=== PATIENT | female | born 1965 | race African-American/Black ===

== ENCOUNTER 2016-12-26 22:01 | Emergency (ER) | payer OTHER ==
[~2016-12-26] VITALS: Ht 157.5 cm; Wt 82.1 kg
[~2016-12-26 22:01] MED LIST: ALBUTEROL SULF8.5 GM INH; ALBUTEROL2.5 MG/3 M HHN; AMOXICILLIN500 MG ORAL; ATARAX25 MG ORAL; AUGMENTIN 875-1 EAC1 ORAL; AURALGAN OTIC1 DROP BOTH EARS; AZITHROMYCIN250 MG ORAL; AZITHROMYCIN250 MG PO; BACTRIM-DS1 EA PO; BENADRYL25 MG ORAL; BENAZEPRIL HCL10 MG PO; CLARITIN10 M2 PO; CLARITIN10 MG ORAL; COLCHICINE0.6 M1 PO; DOCUSATE SODIU250 MG PO; FLOVENT2 PUFF1 INH; FUROSEMIDE20 M1 PO; GABAPENTIN600 MG ORAL; INDOMETHACIN75 MG ORAL; IRON159 MG PO; IRON325 M1 PO; KEFLEX500 MG PO; MULTI-VITAMIN1 EACH PO; NORCO 5-325 TA1 EACH ORAL; OYST CAL D 5001 EACH PO; PHENERGAN/CODE120 ML PO; PREDNISONE20 MG ORAL; PREDNISONE20 MG PO; PREVACID15 MG PO; PRILOSEC40 MG ORAL; PROMETHAZINE-C118 M1 ORAL; SINGULAIR10 MG PO; TRAMADOL HCL50 MG ORAL; TRAMADOL HCL50 MG PO; TYLENOL EXTRA500 MG ORAL; VISTARIL50 MG ORAL; XOPENEX HFA15 GM IH; ZYRTEC10 MG ORAL
[2016-12-26] MEDS ORDERED: ACETAMINOPHEN-1 EAC1 ORAL (22:53)
--- NOTE | 2016-12-26 22:54 | Emergency Room Report ---
History of Present Illness General Chief Complaint: Pain Source: Patient, Family Member, Medical Record Present Illness HPI Is a 51-year-old female with a history of gout. She also history carpal tunnel syndrome. She presents with chief complaint of left arm pain is been ongoing for 2 weeks. She felt numbness in her hand. Also pain to the elbow and neck area. Denies any fever chills denies any trauma. Pain is 10 out of 10. Ibuprofen and gabapentin not helping. Denies any other complaint. Allergies: Coded Allergies: LEVOFLOXACIN (Verified Allergy, Mild, RASH, 08/09/09) HYDROCHLOROTHIAZIDE (Verified Allergy, Unknown, HIVES AND GI UPSET, ) LORAZEPAM (Verified Allergy, Unknown, CONFUSION ACCORDING TO DAUGHTER, 18/10) ACETAMINOPHEN (Verified Adverse Reaction, Unknown, GI UPSET, 03/16/11) HYDROCODONE (Verified Adverse Reaction, Unknown, GI UPSET, 03/16/11) RANITIDINE (Verified Adverse Reaction, Unknown, GI UPSET, 03/16/11) Uncoded Allergies: ati (Adverse Reaction, Intermediate, 10/12/14) Patient History Past Medical History: see triage record, old chart reviewed, HTN Past Surgical History: other Pertinent Family History: none Social History: Denies: smoking Now: No Immunizations: other Reviewed Nursing Documentation: PMH: Agreed, PSxH: Agreed Nursing Documentation-PMH Hx Cardiac Problems: Yes - CARPAL TUNNEL Hx Hypertension: Yes Hx Pacemaker: No Hx Asthma: Yes Hx COPD: No Hx Diabetes: No Hx Cancer: No Hx Gastrointestinal Problems: Yes Hx Dialysis: No Hx Neurological Problems: No Hx Cerebrovascular Accident: No Hx Seizures: No Review of Systems Eye: Denies: blurred vision, eye pain ENT: Denies: ear pain, nose congestion, throat swelling Respiratory: Denies: cough, shortness of breath Cardiovascular: Denies: chest pain, palpitations Gastrointestinal: Denies: abdominal pain, diarrhea, nausea, vomiting Musculoskeletal: Reports: joint pain, Denies: back pain Skin: Denies: rash Neurological: Denies: headache, numbness Endocrine: Denies: increased thirst, increased urine Hematologic/Lymphatic: Denies: easy bruising All Other Systems: negative except mentioned in HPI Physical Exam Vital Signs Date Time Temp Pulse Resp B/P Pulse Ox O2 Delivery O2 Flow Rate FiO2 12/26/16 22:32 97.7 85 16 134/68 100 Room Air vitals normal Sp02 EP Interpretation: reviewed, normal General Appearance: well appearing, no apparent distress, alert Head: normocephalic, atraumatic Eyes: bilateral eye EOMI, bilateral eye PERRL ENT: hearing grossly normal, normal pharynx Neck: full range of motion, supple, no meningismus Respiratory: chest non-tender, lungs clear, normal breath sounds Cardiovascular #1: regular rate, rhythm, no murmur Gastrointestinal: normal bowel sounds, non tender, no mass, no organomegaly, no bruit, non-distended Musculoskeletal: back normal, gait/station normal, normal range of motion Psychiatric: mood/affect normal Skin: warm/dry Medical Decision Making Diagnostic Impression: Primary Impression: Arthralgia Qualified Codes: M25.50 - Pain in unspecified joint ER Course Is presents with left arm pain. I suspect that she has arthritis versus stenosis and his nerve in the neck. No evidence of cauda equina syndrome, spinal after abscess, septic joint to name a few. We'll discharge home. Last Vital Signs Date Time Temp Pulse Resp B/P Pulse Ox O2 Delivery O2 Flow Rate FiO2 12/26/16 22:32 97.7 85 16 134/68 100 Room Air Status: improved Disposition: HOME, SELF-CARE Condition: Stable Scripts Acetaminophen With Codeine (T#3) (TYLENOL #3 TAB*) Y Tab 1 TAB ORAL Q8H Y for For Pain, #30 TAB Prov: BROOKLYN AKHTAR M.D. 12/26/16 Additional Instructions: Followup with your Dr. in 7 days. You may need an MRI of your neck and not better. Return if symptom worsen. BROOKLYN AKHTAR M.D. Dec 26, 2016 22:54
[2016-12-26] MEDS ORDERED: Morphine Sulfate 4mg/ml Inj IM ONE (23:00)
[2016-12-26 23:07] VITALS: BP 134/68
== END 2016-12-26 23:08 | disposition home or self-care (01) ==
LOC: EMR 22:52
DX: M79.602 Pain in left arm (principal); I10 Essential (primary) hypertension; J45.909 Unspecified asthma, uncomplicated; Z88.1 Allergy status to other antibiotic agents; Z88.6 Allergy status to analgesic agent; Z88.8 Allergy status to other drugs, medicaments and biological substances
CPT/HCPCS: 96372; 99283; J2270; 96360; 96374; 96375

== ENCOUNTER 2017-10-31 11:22 | Inpatient (IN) | payer OTHER ==
[~2017-10-31] VITALS: Ht 157.5 cm; Wt 88.9 kg
[~2017-10-31 11:22] MED LIST changes: +ACETAMINOPHEN-1 EAC1 ORAL
[2017-10-31] MEDS ORDERED: Solu-MEDROL 125mg Inj IVP ONE (11:30)
[2017-10-31 11:53] VITALS: BP 129/63
[2017-10-31] MEDS: Ipratropium 0.02% Inh Soln 2.5ml UD HHN SCH ×3 (12:14→12:28)
[2017-10-31] MEDS: Albuterol ud Inhalation HHN SCH ×3 (12:28→12:40)
[2017-10-31 12:35] LABS: BASOPHILS % (AUTO) 2.9 % (0.0-2.0); EOSINOPHILS % (AUTO) 0.2 % (0.0-3.0); LYMPHOCYTES % (AUTO) 13.3 % (20.0-45.0); MEAN CORPUSCULAR HEMOGLOBIN 28.1 PG (27.0-31.0); MEAN CORPUSCULAR HGB CONC 31.7 G/DL (32.0-36.0); MEAN CORPUSCULAR VOLUME 89 FL (80-99); MEAN PLATELET VOLUME 8.5 FL (6.5-10.1); MONOCYTES % (AUTO) 15.4 % (1.0-10.0); NEUTROPHILS % (AUTO) 68.2 % (45.0-75.0); PLATELET COUNT 337 K/UL (150-450); RED BLOOD COUNT 4.37 M/UL (4.20-5.40); RED CELL DISTRIBUTION WIDTH 12.7 % (11.6-14.8); WHITE BLOOD COUNT 4.8 K/UL (4.8-10.8)
[2017-10-31] MEDS ORDERED: Acetaminophen 500mg (ES) tab ORAL ONE ×2 (12:36→14:15)
[2017-10-31 12:38] LABS: ANION GAP 6 mmol/L (5-15); CALCIUM 7.3 MG/DL (8.5-10.1); CARBON DIOXIDE 30 MMOL/L (21-32); CHLORIDE 104 MMOL/L (98-107); CREATININE 0.9 MG/DL (0.55-1.30); GLOMERULAR FILTRATION RATE > 60 mL/min (>60); POTASSIUM 3.9 MMOL/L (3.5-5.1); SODIUM 140 MMOL/L (136-145)
[2017-10-31 12:49] LABS: ALANINE AMINOTRANSFERASE 30 U/L (12-78); ALBUMIN/GLOBULIN RATIO 0.9 (1.0-2.7); ASPARTATE AMINO TRANSFERASE 21 U/L (15-37); TOTAL PROTEIN 7.3 G/DL (6.4-8.2)
--- NOTE | 2017-10-31 13:24 | Emergency Room Report ---
History of Present Illness General Chief Complaint: Dyspnea/Respdistress Source: Patient Present Illness HPI 52-year-old female with asthma, p/w SOB for 3 days. Patient states SOB began when gradually. SOB occurs both at rest and on exertion. + productive cough with sputum, Denies chest pain. Patient has been using albuterol inhaler every 12 hours. no recent steroid use. Pt states that this episode is similar to other episodes of asthma exacerbation. + fever, chills. Denies sick contacts or recent travel. States that she has had intubations in the past, the last was 10 years ago Denies history of PE/DVT, no recent surgeries, prolonged immobilization Allergies: Coded Allergies: LEVOFLOXACIN (Verified Allergy, Mild, RASH, 08/09/09) HYDROCHLOROTHIAZIDE (Verified Allergy, Unknown, HIVES AND GI UPSET, ) LORAZEPAM (Verified Allergy, Unknown, CONFUSION ACCORDING TO DAUGHTER, 18/10) HYDROCODONE (Verified Adverse Reaction, Unknown, GI UPSET, 03/16/11) RANITIDINE (Verified Adverse Reaction, Unknown, GI UPSET, 03/16/11) Uncoded Allergies: ati (Adverse Reaction, Intermediate, 10/12/14) Patient History Past Medical History: see triage record Past Surgical History: none Pertinent Family History: none Last Menstrual Period: Perimenopausal Reviewed Nursing Documentation: PMH: Agreed, PSxH: Agreed Nursing Documentation-PMH Hx Cardiac Problems: Yes - CARPAL TUNNEL Hx Hypertension: Yes Hx Pacemaker: No Hx Asthma: Yes Hx COPD: No Hx Diabetes: No Hx Cancer: No Hx Gastrointestinal Problems: Yes Hx Dialysis: No Hx Neurological Problems: No Hx Cerebrovascular Accident: No Hx Seizures: No Review of Systems All Other Systems: negative except mentioned in HPI Physical Exam Vital Signs Date Time Temp Pulse Resp B/P (MAP) Pulse Ox O2 Delivery O2 Flow Rate FiO2 10/31/17 11:24 101.1 100 28 121/62 100 Room Air 10/31/17 12:20 2.0 28 Sp02 EP Interpretation: reviewed, normal General Appearance: alert, GCS 15, non-toxic, moderate distress Head: normocephalic, atraumatic Eyes: bilateral eye normal inspection, bilateral eye PERRL, bilateral eye EOMI ENT: normal ENT inspection, normal pharynx, normal voice, moist mucus membranes Neck: normal inspection, full range of motion, supple Respiratory: other - wheezing b/l Cardiovascular #1: normal inspection, regular rate, rhythm, normal capillary refill Cardiovascular #2: 2+ radial (R), 2+ radial (L) Gastrointestinal: normal inspection, non tender, soft, non-distended, no guarding Musculoskeletal: normal inspection, back normal, normal range of motion, non- tender Neurologic: normal inspection, alert, oriented x3, responsive, motor strength/ tone normal, sensory intact, normal gait, speech normal Psychiatric: normal inspection, judgement/insight normal, memory normal Skin: normal inspection, normal color, no rash, warm/dry, well hydrated, normal turgor Procedures Critical Care Time Critical Care Time 40 minutes of CC time 52-year-old female with asthma exacerbation VS: tachycardiac tachypnea PLAN: IV access, labs, nebs, steroids, magnesium, chest x-ray Anticipate admission to Tele vs. PRINCESS CC time also includes review of labs, review of EMR, discussion with family and paperwork from SNF, d/w hospitalist CC could include dosing of pressors, additional Abx CC time does not include procedures Medical Decision Making Diagnostic Impression: Primary Impression: asthma exacerbation Additional Impression: Pneumonia ER Course 52-year-old female with history of asthma p/w SOB DDX: Asthma exacerbation, pneumonia, upper respiratory infection/viral syndrome PE is unlikely given other likely diagnoses which is more likely in this patients given clinical scenario and physical examination. Furthermore, there is no history of DVT/PE. PERC negative. No risk factors such as OCPs, prolonged immobilizations, recent surgeries, hypercoagulability. Plan: Combivent nebulizer treatment x 3, steroids, EKG, CXR If patient's condition minimally improves/worsens will require IV access and blood work. Possible IV medications such as magnesium sulfate, continuous albuterol, BIPAP. ER Course: Patient's respiratory status has been closely monitored in the ED. Patient has been treated with combivent x 3, steroids. IV magnesium sulfate Repeat lung auscultation reveals improvement however still wheezing Patent's remains tachypneic and hypoxic on room air. Disposition: Patient will be admitted to telemetry Patient requires close monitoring of respiratory status, and nebulizer D/W hospitalist Dr. Gilman who has accepted patient for admission Please note that this Emergency Department Report was dictated using [employer] technology software, occasionally this can lead to erroneous entry secondary to interpretation by the dictation equipment. EKG Diagnostic Results EP Interpretation: Yes Rate: Tachycardic Rhythm: NSR ST Segments: No acute changes ASA given to patient: No Rhythm Strip EP Interpretation: Yes Rate: 100 Rhythm: NSR, no PVCs, no ectopy Chest X-ray CXR: Ordered: Yes 1 view Indication: SOB EP interpretation: Yes Interpretation: Possible right-sided infiltrate Impression: Possible right-sided infiltrate Electronically signed by Damion Deleon MD Laboratory Tests Test 10/31/17 12:05 White Blood Count 4.8 K/UL (4.8-10.8) Red Blood Count 4.37 M/UL (4.20-5.40) Hemoglobin 12.3 G/DL (12.0-16.0) Hematocrit 38.7 % (37.0-47.0) Mean Corpuscular Volume 89 FL (80-99) Mean Corpuscular Hemoglobin 28.1 PG (27.0-31.0) Mean Corpuscular Hemoglobin Concent 31.7 G/DL (32.0-36.0) L Red Cell Distribution Width 12.7 % (11.6-14.8) Platelet Count 337 K/UL (150-450) Mean Platelet Volume 8.5 FL (6.5-10.1) Neutrophils (%) (Auto) 68.2 % (45.0-75.0) Lymphocytes (%) (Auto) 13.3 % (20.0-45.0) L Monocytes (%) (Auto) 15.4 % (1.0-10.0) H Eosinophils (%) (Auto) 0.2 % (0.0-3.0) Basophils (%) (Auto) 2.9 % (0.0-2.0) H Sodium Level 140 MMOL/L (136-145) Potassium Level 3.9 MMOL/L (3.5-5.1) Chloride Level 104 MMOL/L (98-107) Carbon Dioxide Level 30 MMOL/L (21-32) Anion Gap 6 mmol/L (5-15) Blood Urea Nitrogen 9 mg/dL (7-18) Creatinine 0.9 MG/DL (0.55-1.30) Estimate Glomerular Filtration Rate > 60 mL/min (>60) Glucose Level 105 MG/DL (74-106) Calcium Level 7.3 MG/DL (8.5-10.1) L Total Bilirubin 0.4 MG/DL (0.2-1.0) Aspartate Amino Transferase (AST) 21 U/L (15-37) Alanine Aminotransferase (ALT) 30 U/L (12-78) Alkaline Phosphatase 94 U/L (46-116) Troponin I 0.008 ng/mL (0.000-0.056) Pro-B-Type Natriuretic Peptide 721 pg/mL (0-125) H Total Protein 7.3 G/DL (6.4-8.2) Albumin 3.4 G/DL (3.4-5.0) Globulin 3.9 g/dL Albumin/Globulin Ratio 0.9 (1.0-2.7) L Last Vital Signs Date Time Temp Pulse Resp B/P (MAP) Pulse Ox O2 Delivery O2 Flow Rate FiO2 10/31/17 12:20 97 16 100 Nasal Cannula 2.0 28 10/31/17 11:53 102.2 129/63 Disposition: ADMITTED INPATIENT Condition: Serious Referrals: NON PHYSICIAN (PCP) Damion Deleon M.D. Oct 31, 2017 13:24
[2017-10-31 14:00] VITALS: BP 127/64
[2017-10-31] MEDS ORDERED: Albuterol ud Inhalation HHN ONE (14:30)
--- NOTE | 2017-10-31 14:53 | Diagnostic Imaging Report ---
Indication: Dyspnea Comparison: 09/19/2016 A single view chest radiograph was obtained. Findings: Cardiomediastinal appearance is within normal limits for age. Pulmonary vascularity is appropriate. The diaphragmatic contour is smooth and costophrenic angles are sharp. No pleural effusions are identified. The bones are unremarkable. Impression: No acute findings
[2017-10-31 15:33] LABS: APPEARANCE,URINE CLEAR; KETONES,URINE NEGATIVE (NEGATIVE); LEUKOCYTE ESTERASE ,URINE NEGATIVE (NEGATIVE); NITRITE,URINE NEGATIVE (NEGATIVE); PH,URINE 6 (4.5-8.0); PROTEIN,URINE NEGATIVE (NEGATIVE); UROBILINOGEN,URINE NORMAL MG/DL (0.0-1.0)
[2017-10-31 16:11] VITALS: BP 117/58
[2017-10-31] MEDS ORDERED: Milk of Magnesia 30ml Ud ORAL PRN (16:45)
[2017-10-31] MEDS ORDERED: Albuterol/Ipratropium 3ml neb HHN PRN (16:45)
[2017-10-31] MEDS ORDERED: Miralax 17gm pkt ORAL PRN (16:45)
--- NOTE | 2017-10-31 16:45 | Consultation ---
History of Present Illness General Date patient seen: Oct 31, 2017 Time patient seen: 16:15 Chief Complaint: Dyspnea/Respdistress Referring physician: dr Howell Reason for Consultation: resp distres Present Illness HPI 52-year-old female with PMH of asthma, HTN, carpal tunnel syndrome, p/w SOB for 3 days. Patient reported gradual onset of shortness of breath Reports fever and chills at home + cough productive with yellow to green phlegm, + wheezes, no hemoptysis no CP, no palpitations at home using steroid inhaler, Singular and HHN as needed no recent steroid use. Pt states that this episode is similar to other episodes of asthma exacerbation. Denies sick contacts or recent travel. History of intubations in the past, the last - 10 years ago No history of PE/DVT, no recent surgeries, no prolonged immobilization Workup in ED revealed fever, tachycardia, tachypnea CXR no acute process no leucocytosis troponin negative pro [id number] patient is being admitted with acute asthma exacerbation, possible PNA Allergies: Coded Allergies: LEVOFLOXACIN (Verified Allergy, Mild, RASH, 08/09/09) HYDROCHLOROTHIAZIDE (Verified Allergy, Unknown, HIVES AND GI UPSET, ) LORAZEPAM (Verified Allergy, Unknown, CONFUSION ACCORDING TO DAUGHTER, 18/10) HYDROCODONE (Verified Adverse Reaction, Unknown, GI UPSET, 03/16/11) RANITIDINE (Verified Adverse Reaction, Unknown, GI UPSET, 03/16/11) Uncoded Allergies: ati (Adverse Reaction, Intermediate, 10/12/14) Medication History Scheduled Albuterol Sulfate* (Albuterol Sulfate Mdi*), 2 PUFF INH Q4H, (Reported) Amoxicillin/Potassium Clav 875-125* (Augmentin 875-125 Tablet*), 1 TAB ORAL TWICE A DAY Azithromycin* (Zithromax*), 250 MG ORAL DAILY Benazepril Hcl* (Benazepril Hcl*), 10 MG PO DAILY, (Reported) Calcium Carbonate/Vitamin D3 (Oyst Shaggy D 500 Mg Tablet), 1 EACH PO TID, ( Reported) Docusate Sodium* (Docusate Sodium*), 250 MG PO BID, (Reported) Ferrous Sulfate (Iron), 325 MG PO TID, (Reported) Fluticasone Propionate (Flovent Hfa), 2 PUFFS INH BID, (Reported) Furosemide* (Lasix*), 10 MG PO DAILY, (Reported) Hydroxyzine HCl (Hydroxyzine HCl), 25 MG ORAL FOUR TIMES A DAY Indomethacin* (Indomethacin*), 75 MG ORAL TWICE A DAY Lansoprazole* (Prevacid*), 15 MG PO DAILY, (Reported) Levalbuterol Tartrate (Xopenex Hfa), 2 PUFF IH BID, (Reported) Loratadine (Claritin), 10 MG PO DAILY, (Reported) Loratadine (Claritin), 10 MG ORAL DAILY, (Reported) Montelukast Sodium* (Singulair*), 10 MG PO DAILY, (Reported) Multivitamin (Multi-Vitamin Daily), 1 EACH PO DAILY, (Reported) Omeprazole (Prilosec), 40 MG ORAL DAILY, (Reported) Prednisone* (Prednisone*), 60 MG ORAL DAILY, (Reported) Scheduled PRN Acetaminophen With Codeine (T#3) (Tylenol #3 Tab*), 1 TAB ORAL Q8H PRN for For Pain Acetaminophen* (Tylenol Extra Strength*), 500 MG ORAL Q6H PRN for Mild Pain/ Temp > 100.5 Albuterol Sulfate* (Albuterol Sulfate Mdi*), 2 PUFF INH Q4H PRN for cough/ wheezing Codeine/Promethazine Hcl* (Promethazine-Codeine Syrup*), 5 ML ORAL Q8HR PRN for For Cough, (Reported) Gabapentin* (Gabapentin*), 600 MG ORAL THREE TIMES A DAY PRN for For Pain, ( Reported) Patient History History Provided By: Patient Healthcare decision maker Resuscitation status Advanced Directive on File Past Medical/Surgical History Past Medical/Surgical History: (1) acute bronchitis (2) Carpal tunnel syndrome on right (3) Gastritis (4) Atypical pneumonia (5) asthma exacerbation (6) Sinusitis (7) Diverticulitis Review of Systems Constitutional: Reports: see HPI, fever, weakness Eye: Reports: no symptoms ENT: Reports: no symptoms Respiratory: Reports: see HPI Cardiovascular: Reports: no symptoms Gastrointestinal: Reports: no symptoms Genitourinary: Reports: no symptoms Musculoskeletal: Reports: no symptoms Skin: Reports: no symptoms Psychiatric: Reports: no symptoms Neurological: Reports: no symptoms Endocrine: Reports: no symptoms Hematologic/Lymphatic: Reports: no symptoms Physical Exam General Appearance: alert, obese, other - A/A/O x 3 AA female Lines, tubes and drains: peripheral HEENT: normocephalic, atraumatic, anicteric, mucous membranes moist, PERRL Neck: supple Respiratory/Chest: chest wall non-tender, no respiratory distress, expiratory wheezing - few scattered , other - tachypneic Cardiovascular/Chest: normal peripheral pulses, regular rhythm - ST on telestrip Abdomen: normal bowel sounds, non tender - obese, soft Extremities: normal range of motion, non-tender, no calf tenderness, normal capillary refill Skin Exam: warm/dry Neurologic: alert, oriented x 3, responsive Musculoskeletal: normal muscle bulk Last 24 Hour Vital Signs Date Time Temp Pulse Resp B/P (MAP) Pulse Ox O2 Delivery O2 Flow Rate FiO2 10/31/17 16:11 98.4 122 21 117/58 97 Nasal Cannula 2.0 10/31/17 15:22 100.3 10/31/17 14:25 116 16 99 Nasal Cannula 2.0 28 10/31/17 14:00 101.0 122 21 127/64 96 Room Air 10/31/17 12:20 97 16 100 Nasal Cannula 2.0 28 10/31/17 11:54 106 24 Room Air 10/31/17 11:53 102.2 106 24 129/63 98 Room Air 10/31/17 11:24 101.1 100 28 121/62 100 Room Air Laboratory Tests Test 10/31/17 12:05 10/31/17 15:16 White Blood Count 4.8 K/UL (4.8-10.8) Red Blood Count 4.37 M/UL (4.20-5.40) Hemoglobin 12.3 G/DL (12.0-16.0) Hematocrit 38.7 % (37.0-47.0) Mean Corpuscular Volume 89 FL (80-99) Mean Corpuscular Hemoglobin 28.1 PG (27.0-31.0) Mean Corpuscular Hemoglobin Concent 31.7 G/DL (32.0-36.0) L Red Cell Distribution Width 12.7 % (11.6-14.8) Platelet Count 337 K/UL (150-450) Mean Platelet Volume 8.5 FL (6.5-10.1) Neutrophils (%) (Auto) 68.2 % (45.0-75.0) Lymphocytes (%) (Auto) 13.3 % (20.0-45.0) L Monocytes (%) (Auto) 15.4 % (1.0-10.0) H Eosinophils (%) (Auto) 0.2 % (0.0-3.0) Basophils (%) (Auto) 2.9 % (0.0-2.0) H Sodium Level 140 MMOL/L (136-145) Potassium Level 3.9 MMOL/L (3.5-5.1) Chloride Level 104 MMOL/L (98-107) Carbon Dioxide Level 30 MMOL/L (21-32) Anion Gap 6 mmol/L (5-15) Blood Urea Nitrogen 9 mg/dL (7-18) Creatinine 0.9 MG/DL (0.55-1.30) Estimat Glomerular Filtration Rate > 60 mL/min (>60) Glucose Level 105 MG/DL (74-106) Calcium Level 7.3 MG/DL (8.5-10.1) L Total Bilirubin 0.4 MG/DL (0.2-1.0) Aspartate Amino Transf (AST/SGOT) 21 U/L (15-37) Alanine Aminotransferase (ALT/SGPT) 30 U/L (12-78) Alkaline Phosphatase 94 U/L (46-116) Troponin I 0.008 ng/mL (0.000-0.056) Pro-B-Type Natriuretic Peptide 721 pg/mL (0-125) H Total Protein 7.3 G/DL (6.4-8.2) Albumin 3.4 G/DL (3.4-5.0) Globulin 3.9 g/dL Albumin/Globulin Ratio 0.9 (1.0-2.7) L Urine Color Pale yellow Urine Appearance Clear Urine pH 6 (4.5-8.0) Urine Specific [place] 1.010 (1.005-1.035) Urine Protein Negative (NEGATIVE) Urine Glucose (UA) Negative (NEGATIVE) Urine Ketones Negative (NEGATIVE) Urine Occult Blood Negative (NEGATIVE) Urine Nitrite Negative (NEGATIVE) Urine Bilirubin Negative (NEGATIVE) Urine Urobilinogen Normal MG/DL (0.0-1.0) Urine Leukocyte Esterase Negative (NEGATIVE) Height (Feet): 5 Height (Inches): 2.00 Weight (Pounds): 196 Assessment/Plan Assessment/Plan ASSESSMENT acute asthma exacerbation possible URI possible PNA fevers possibly sepsis HTN PLAN OF CARE tele O2 to keep sat above 92% pulmonary toilet IV steroids and taper soon empiric abx sputum cx a/tussive prn fup with CXR DVT GI prophayxlis case discussed and evaluated by supervising physician Peace Cole NP ([place]) Oct 31, 2017 16:45
[2017-10-31] MEDS ORDERED: Promethazine/Codeine 5ml UD ORAL ONE (17:45)
[2017-10-31] MEDS: Solu-MEDROL 40mg Inj IVP SCH (17:46)
[2017-10-31 19:30] VITALS: BP 120/59
[2017-10-31 21:00] VITALS: BP 136/71
[2017-10-31] MEDS ORDERED: Montelukast 10mg tablet ORAL SCH (21:00)
[2017-10-31] MEDS ORDERED: cefTRIAXone 1 GM in D5W 55 ML IV SCH (21:00)
[2017-10-31] MEDS: Heparin 5000 units/ml inj SUBQ SCH (21:15)
[2017-10-31] MEDS ORDERED: Azithromycin 500 MG in D5W 275 ML IV SCH (21:30)
[2017-10-31] MEDS: Guaifenesin/DM 10ml syrup ORAL PRN (21:59)
[2017-11-01] VITALS (7 sets, daily range): BP systolic 103–140; BP diastolic 60–82
[2017-11-01] MEDS: Guaifenesin/DM 10ml syrup ORAL PRN (04:14)
[2017-11-01] MEDS: Solu-MEDROL 40mg Inj IVP SCH ×3 (06:52→11:21)
--- NOTE | 2017-11-01 08:27 | Pulmonology Progress Note ---
Assessment/Plan Assessment/Plan ASSESSMENT acute asthma exacerbation possible URI possible PNA fevers possibly sepsis HTN PLAN OF CARE tele O2 to keep sat above 92% pulmonary toilet IV steroids and taper soon empiric abx sputum cx and blood cx ID consult add CPT tid with HHN x 48 hrs trial of Theophylline ER a/tussive prn fup with CXR 2view this am DVT GI prophayxlis labs pending for this am case discussed and evaluated by supervising physician Subjective Allergies: Coded Allergies: LEVOFLOXACIN (Verified Allergy, Mild, RASH, 08/09/09) HYDROCHLOROTHIAZIDE (Verified Allergy, Unknown, HIVES AND GI UPSET, ) LORAZEPAM (Verified Allergy, Unknown, CONFUSION ACCORDING TO DAUGHTER, 18/10) HYDROCODONE (Verified Adverse Reaction, Unknown, GI UPSET, 03/16/11) RANITIDINE (Verified Adverse Reaction, Unknown, GI UPSET, 03/16/11) Subjective fevers last night and this am congested, weak, diaphoresis no chest pain Objective Last 24 Hour Vital Signs Date Time Temp Pulse Resp B/P (MAP) Pulse Ox O2 Delivery O2 Flow Rate FiO2 11/01/17 05:14 98.1 11/01/17 04:29 98 20 100 Nasal Cannula 2.0 28 11/01/17 04:20 101 16 97 Nasal Cannula 2.0 11/01/17 04:20 36 11/01/17 04:00 88 11/01/17 04:00 100.6 91 20 128/80 96 Room Air 21 11/01/17 00:00 99.1 98 20 128/78 96 Room Air 11/01/17 00:00 92 10/31/17 21:00 101.8 109 20 136/71 98 Nasal Cannula 2.0 10/31/17 20:58 107 10/31/17 20:00 98.6 105 14 120/59 99 Nasal Cannula 2.0 10/31/17 19:30 98.6 105 14 120/59 99 Nasal Cannula 2.0 10/31/17 16:11 98.4 122 21 117/58 97 Nasal Cannula 2.0 10/31/17 15:22 100.3 10/31/17 14:25 116 16 99 Nasal Cannula 2.0 28 10/31/17 14:00 101.0 122 21 127/64 96 Room Air 10/31/17 12:20 97 16 100 Nasal Cannula 2.0 28 10/31/17 11:54 106 24 Room Air 10/31/17 11:53 102.2 106 24 129/63 98 Room Air 10/31/17 11:24 101.1 100 28 121/62 100 Room Air Intake and Output 10/31/17 11/01/17 19:00 07:00 Intake Total 1100 ml 530 ml Balance 1100 ml 530 ml Intake Oral 0 ml 200 ml IV Total 1100 ml 330 ml # Voids 4 Objective General Appearance: alert, obese, other - A/A/O x 3 AA female Lines, tubes and drains: peripheral HEENT: normocephalic, atraumatic, anicteric, mucous membranes moist, PERRL Neck: supple Respiratory/Chest: chest wall non-tender, no respiratory distress, expiratory wheezing - few scattered , other - tachypneic Cardiovascular/Chest: normal peripheral pulses, regular rhythm - SR Abdomen: normal bowel sounds, non tender - obese, soft Extremities: normal range of motion, non-tender, no calf tenderness, normal capillary refill Skin Exam: warm/dry Neurologic: alert, oriented x 3, responsive Musculoskeletal: normal muscle bulk Laboratory Tests 10/31/17 12:05: White Blood Count 4.8, Red Blood Count 4.37, Hemoglobin 12.3, Hematocrit 38.7, Mean Corpuscular Volume 89, Mean Corpuscular Hemoglobin 28.1, Mean Corpuscular Hemoglobin Concent 31.7L, Red Cell Distribution Width 12.7, Platelet Count 337, Mean Platelet Volume 8.5, Neutrophils (%) (Auto) 68.2, Lymphocytes (%) (Auto) 13.3L, Monocytes (%) (Auto) 15.4H, Eosinophils (%) (Auto) 0.2, Basophils (%) ( Auto) 2.9H, Sodium Level 140, Potassium Level 3.9, Chloride Level 104, Carbon Dioxide Level 30, Anion Gap 6, Blood Urea Nitrogen 9, Creatinine 0.9, Estimat Glomerular Filtration Rate > 60, Glucose Level 105, Calcium Level 7.3L, Total Bilirubin 0.4, Aspartate Amino Transf (AST/SGOT) 21, Alanine Aminotransferase ( ALT/SGPT) 30, Alkaline Phosphatase 94, Troponin I 0.008, Pro-B-Type Natriuretic Peptide 721H, Total Protein 7.3, Albumin 3.4, Globulin 3.9, Albumin/Globulin Ratio 0.9L 10/31/17 15:16: Urine Color Pale yellow, Urine Appearance Clear, Urine pH 6, Urine Specific [place] 1.010, Urine Protein Negative, Urine Glucose (UA) Negative, Urine Ketones Negative, Urine Occult Blood Negative, Urine Nitrite Negative, Urine Bilirubin Negative, Urine Urobilinogen Normal, Urine Leukocyte Esterase Negative Current Medications Medications (Trade) Dose Ordered Sig/Sharmin Route PRN Reason Start Time Stop Time Status Last Admin Dose Admin Acetaminophen (Tylenol) 650 mg Q4H PRN ORAL T>100.5 10/31/17 16:45 11/30/17 16:44 11/01/17 04:15 Albuterol/ Ipratropium (Albuterol/ Ipratropium) 3 ml Q4H PRN HHN Shortness of Breath 10/31/17 16:45 11/05/17 16:44 11/01/17 04:28 Azithromycin 500 mg/Dextrose 275 ml @ 275 mls/hr Q24H IV 10/31/17 21:30 11/07/17 21:29 10/31/17 22:30 Ceftriaxone Sodium 1 gm/ Dextrose 55 ml @ 110 mls/hr Q24H IV 10/31/17 21:00 11/07/17 20:59 10/31/17 21:50 Furosemide (Lasix) 10 mg DAILY ORAL 11/01/17 09:00 12/01/17 08:59 Gabapentin (Neurontin) 600 mg Q8H PRN ORAL Neuropathic pain 10/31/17 16:45 11/30/17 16:44 Guaifenesin/ Dextromethorphan (Robitussin DM Syrup) 10 ml Q4H PRN ORAL For Cough 10/31/17 20:00 11/30/17 19:59 11/01/17 04:14 Heparin Sodium (Porcine) (Heparin 5000 units/ml) 5,000 units EVERY 12 HOURS SUBQ 10/31/17 21:00 11/30/17 20:59 10/31/17 21:15 Magnesium Hydroxide (Mom) 30 ml HSPRN PRN ORAL Constipation 10/31/17 16:45 11/30/17 16:44 Methylprednisolone Sodium Succinate (Solu-MEDROL) 40 mg EVERY 6 HOURS IVP 10/31/17 18:00 11/30/17 17:59 11/01/17 06:52 Montelukast Sodium (Singulair) 10 mg BEDTIME ORAL 10/31/17 21:00 11/30/17 20:59 10/31/17 21:12 Ondansetron HCl (Zofran) 4 mg Q6H PRN IVP Nausea & Vomiting 10/31/17 16:45 11/30/17 16:44 Pantoprazole (Protonix) 40 mg DAILY ORAL 11/01/17 09:00 12/01/17 08:59 Polyethylene Glycol (Miralax) 17 gm DAILYPRN PRN ORAL Constipation 10/31/17 16:45 11/30/17 16:44 Theophylline (Rafael-Dur) 100 mg DAILY ORAL 11/01/17 09:00 12/01/17 08:59 Douglas ([facility])Peace NP Nov 01, 2017 08:27
[2017-11-01 08:47] LABS: BASOPHILS % (AUTO) 1.5 % (0.0-2.0); LYMPHOCYTES % (AUTO) 12.6 % (20.0-45.0); MEAN CORPUSCULAR HEMOGLOBIN 28.3 PG (27.0-31.0); MEAN CORPUSCULAR VOLUME 88 FL (80-99); MEAN PLATELET VOLUME 8.2 FL (6.5-10.1); MONOCYTES % (AUTO) 2.9 % (1.0-10.0); NEUTROPHILS % (AUTO) 83.1 % (45.0-75.0); PLATELET COUNT 315 K/UL (150-450); RED BLOOD COUNT 4.17 M/UL (4.20-5.40); RED CELL DISTRIBUTION WIDTH 12.9 % (11.6-14.8); WHITE BLOOD COUNT 4.9 K/UL (4.8-10.8)
[2017-11-01 08:52] LABS: ANION GAP 8 mmol/L (5-15); CALCIUM 7.4 MG/DL (8.5-10.1); CARBON DIOXIDE 26 MMOL/L (21-32); CHLORIDE 105 MMOL/L (98-107); CREATININE 0.8 MG/DL (0.55-1.30); GLOMERULAR FILTRATION RATE > 60 mL/min (>60); SODIUM 139 MMOL/L (136-145)
[2017-11-01] MEDS ORDERED: Theophylline ER 100mg ORAL SCH (09:00)
--- NOTE | 2017-11-01 09:00 | History and Physical Report ---
DATE OF ADMISSION: 10/31/[address] Wilkerson. REASON FOR ADMISSION: Pleuritic pain with coughing. IDENTIFICATION DATA: The patient is a pleasant 52-year-old female with past medical history significant for hypertension, asthma, and carpal tunnel syndrome, presents with shortness of breath for the past several days with cough productive of yellowish sputum with wheezing. No hemoptysis. No chest pain. No palpitations at home with steroid, Singulair, handheld nebulizers as needed. No recent steroid use. The patient 00:54 she has had asthma exacerbations in the past. Workup in the ER revealed 01:01. Pulmonary team has been consulted. Troponin is negative at this time. 01:04 exacerbation of asthma, possible pneumonia. PAST MEDICAL HISTORY: As noted above. ALLERGIES: Rifaximin, hydrochlorothiazide, 01:12 [place], and ranitidine. 01:15. REVIEW OF SYSTEMS: CONSTITUTIONAL: The patient does have some fever and chills. SKIN: No rashes, bumps, or itching. HEENT: No headache, hearing, or vision changes. BREASTS: No lumps, pain, or discharge. PULMONARY: Sputum with shortness of breath as noted. GENITOURINARY: No dysuria, frequency, or urgency. MUSCULOSKELETAL: No joint swelling, muscle pain, or trauma. PHYSICAL EXAMINATION: GENERAL: No distress. VITAL SIGNS: Reviewed. PULMONARY: Decreased breath sounds. CARDIOVASCULAR: Regular rate. No S3 or S4. ABDOMEN: Soft, nontender, and nondistended. EXTREMITIES: A 1+ edema. LABORATORY AND DIAGNOSTIC DATA: WBC 4.2, hemoglobin 12.3, hematocrit 39, and platelets 237,000. Imaging, chest x-ray 01:54. ASSESSMENT AND RECOMMENDATIONS: 1. Asthma with exacerbation. Currently continue steroids and antibiotics. Obtain imaging. Fluids as necessary. 2. Upper respiratory infection, possible pneumonia. The patient is seen by pulmonary team and again, sputum culture is pending. 02:18 as needed. Chest x-ray followup. Continue handheld nebulizer. 3. Past 02:39, currently improved. 4. Carpal tunnel syndrome. 5. Diverticulitis 02:46 currently resolved. 6. Hypocalcemia. 7. I appreciate consult and care with Pulmonary team. Jerson Howell M.D. DR: Rafael JOB#: [id number] CC:
[2017-11-01] MEDS: Heparin 5000 units/ml inj SUBQ SCH (09:21)
[2017-11-01] MEDS ORDERED: Cefepime HCl 1 GM in D5W 55 ML IVPB SCH (10:00)
--- NOTE | 2017-11-01 10:17 | Consultation ---
History of Present Illness General Date patient seen: Nov 01, 2017 Time patient seen: 11:15 Chief Complaint: Dyspnea/Respdistress Referring physician: dr Howell Reason for Consultation: resp distres Present Illness HPI 52 y/o F with hx of Asthma that had required intubation in the past for exacerbation, HTN, carpal tunnel present to ED on 10/31 with 3 days onset of gradually worsening SOB, both at rest and on exertion with productive cough and wheezing. Required more frequent use of her rescue inhaler. Refers symptoms to be similar to prior asthma exacerbations. +Fevers, chills Denied CP, sick contacts, recent travel. recent surgeries, prolonged immobilization febrile up to 102. CXR with no PNA. Allergies: Coded Allergies: LEVOFLOXACIN (Verified Allergy, Mild, RASH, 08/09/09) HYDROCHLOROTHIAZIDE (Verified Allergy, Unknown, HIVES AND GI UPSET, ) LORAZEPAM (Verified Allergy, Unknown, CONFUSION ACCORDING TO DAUGHTER, 18/10) HYDROCODONE (Verified Adverse Reaction, Unknown, GI UPSET, 03/16/11) RANITIDINE (Verified Adverse Reaction, Unknown, GI UPSET, 03/16/11) Medication History Scheduled Albuterol Sulfate* (Albuterol Sulfate Mdi*), 2 PUFF INH Q4H, (Reported) Amoxicillin/Potassium Clav 875-125* (Augmentin 875-125 Tablet*), 1 TAB ORAL TWICE A DAY Azithromycin* (Zithromax*), 250 MG ORAL DAILY Benazepril Hcl* (Benazepril Hcl*), 10 MG PO DAILY, (Reported) Calcium Carbonate/Vitamin D3 (Oyst Shaggy D 500 Mg Tablet), 1 EACH PO TID, ( Reported) Docusate Sodium* (Docusate Sodium*), 250 MG PO BID, (Reported) Ferrous Sulfate (Iron), 325 MG PO TID, (Reported) Fluticasone Propionate (Flovent Hfa), 2 PUFFS INH BID, (Reported) Furosemide* (Lasix*), 10 MG PO DAILY, (Reported) Hydroxyzine HCl (Hydroxyzine HCl), 25 MG ORAL FOUR TIMES A DAY Indomethacin* (Indomethacin*), 75 MG ORAL TWICE A DAY Lansoprazole* (Prevacid*), 15 MG PO DAILY, (Reported) Levalbuterol Tartrate (Xopenex Hfa), 2 PUFF IH BID, (Reported) Loratadine (Claritin), 10 MG PO DAILY, (Reported) Loratadine (Claritin), 10 MG ORAL DAILY, (Reported) Montelukast Sodium* (Singulair*), 10 MG PO DAILY, (Reported) Multivitamin (Multi-Vitamin Daily), 1 EACH PO DAILY, (Reported) Omeprazole (Prilosec), 40 MG ORAL DAILY, (Reported) Prednisone* (Prednisone*), 60 MG ORAL DAILY, (Reported) Scheduled PRN Acetaminophen With Codeine (T#3) (Tylenol #3 Tab*), 1 TAB ORAL Q8H PRN for For Pain Acetaminophen* (Tylenol Extra Strength*), 500 MG ORAL Q6H PRN for Mild Pain/ Temp > 100.5 Albuterol Sulfate* (Albuterol Sulfate Mdi*), 2 PUFF INH Q4H PRN for cough/ wheezing Codeine/Promethazine Hcl* (Promethazine-Codeine Syrup*), 5 ML ORAL Q8HR PRN for For Cough, (Reported) Gabapentin* (Gabapentin*), 600 MG ORAL THREE TIMES A DAY PRN for For Pain, ( Reported) Patient History Healthcare decision maker Resuscitation status Full Code Advanced Directive on File Patient History Narrative PMHx:as above Shx: reviewed Fhx: non contributory Review of Systems ROS Narrative as per HPI,otherwise negatve Physical Exam Physical Exam Narrative General Appearance: alert, obese, other - A/A/O x 3 AA female Lines, tubes and drains: peripheral HEENT: normocephalic, atraumatic, anicteric, mucous membranes moist, PERRL Neck: supple Respiratory/Chest: chest wall non-tender, no respiratory distress, expiratory wheezing - few scattered Cardiovascular/Chest: normal peripheral pulses, regular rhythm Abdomen: normal bowel sounds, non tender - obese, soft Extremities: normal range of motion, non-tender, no calf tenderness, normal capillary refill Skin Exam: warm/dry Neurologic: alert, oriented x 3, responsive Musculoskeletal: normal muscle bulk Last 24 Hour Vital Signs Date Time Temp Pulse Resp B/P (MAP) Pulse Ox O2 Delivery O2 Flow Rate FiO2 11/01/17 05:14 98.1 11/01/17 04:29 98 20 100 Nasal Cannula 2.0 28 11/01/17 04:20 101 16 97 Nasal Cannula 2.0 28 11/01/17 04:20 36 11/01/17 04:00 88 11/01/17 04:00 100.6 91 20 128/80 96 Room Air 21 11/01/17 00:00 99.1 98 20 128/78 96 Room Air 11/01/17 00:00 92 10/31/17 21:00 101.8 109 20 136/71 98 Nasal Cannula 2.0 10/31/17 20:58 107 10/31/17 20:00 98.6 105 14 120/59 99 Nasal Cannula 2.0 10/31/17 19:30 98.6 105 14 120/59 99 Nasal Cannula 2.0 10/31/17 16:11 98.4 122 21 117/58 97 Nasal Cannula 2.0 10/31/17 15:22 100.3 10/31/17 14:25 116 16 99 Nasal Cannula 2.0 28 10/31/17 14:00 101.0 122 21 127/64 96 Room Air 10/31/17 12:20 97 16 100 Nasal Cannula 2.0 28 10/31/17 11:54 106 24 Room Air 10/31/17 11:53 102.2 106 24 129/63 98 Room Air 10/31/17 11:24 101.1 100 28 121/62 100 Room Air Intake and Output 10/31/17 11/01/17 19:00 07:00 Intake Total 1100 ml 530 ml Balance 1100 ml 530 ml Intake Oral 0 ml 200 ml IV Total 1100 ml 330 ml # Voids 4 Laboratory Tests Test 10/31/17 12:05 10/31/17 15:16 11/01/17 08:15 White Blood Count 4.8 K/UL (4.8-10.8) 4.9 K/UL (4.8-10.8) Red Blood Count 4.37 M/UL (4.20-5.40) 4.17 M/UL (4.20-5.40) L Hemoglobin 12.3 G/DL (12.0-16.0) 11.8 G/DL (12.0-16.0) L Hematocrit 38.7 % (37.0-47.0) 36.9 % (37.0-47.0) L Mean Corpuscular Volume 89 FL (80-99) 88 FL (80-99) Mean Corpuscular Hemoglobin 28.1 PG (27.0-31.0) 28.3 PG (27.0-31.0) Mean Corpuscular Hemoglobin Concent 31.7 G/DL (32.0-36.0) L 32.0 G/DL (32.0-36.0) Red Cell Distribution Width 12.7 % (11.6-14.8) 12.9 % (11.6-14.8) Platelet Count 337 K/UL (150-450) 315 K/UL (150-450) Mean Platelet Volume 8.5 FL (6.5-10.1) 8.2 FL (6.5-10.1) Neutrophils (%) (Auto) 68.2 % (45.0-75.0) 83.1 % (45.0-75.0) H Lymphocytes (%) (Auto) 13.3 % (20.0-45.0) L 12.6 % (20.0-45.0) L Monocytes (%) (Auto) 15.4 % (1.0-10.0) H 2.9 % (1.0-10.0) Eosinophils (%) (Auto) 0.2 % (0.0-3.0) 0.0 % (0.0-3.0) Basophils (%) (Auto) 2.9 % (0.0-2.0) H 1.5 % (0.0-2.0) Sodium Level 140 MMOL/L (136-145) 139 MMOL/L (136-145) Potassium Level 3.9 MMOL/L (3.5-5.1) 4.0 MMOL/L (3.5-5.1) Chloride Level 104 MMOL/L (98-107) 105 MMOL/L (98-107) Carbon Dioxide Level 30 MMOL/L (21-32) 26 MMOL/L (21-32) Anion Gap 6 mmol/L (5-15) 8 mmol/L (5-15) Blood Urea Nitrogen 9 mg/dL (7-18) 9 mg/dL (7-18) Creatinine 0.9 MG/DL (0.55-1.30) 0.8 MG/DL (0.55-1.30) Estimat Glomerular Filtration Rate > 60 mL/min (>60) > 60 mL/min (>60) Glucose Level 105 MG/DL (74-106) 167 MG/DL (74-106) H Calcium Level 7.3 MG/DL (8.5-10.1) L 7.4 MG/DL (8.5-10.1) L Total Bilirubin 0.4 MG/DL (0.2-1.0) Aspartate Amino Transf (AST/SGOT) 21 U/L (15-37) Alanine Aminotransferase (ALT/SGPT) 30 U/L (12-78) Alkaline Phosphatase 94 U/L (46-116) Troponin I 0.008 ng/mL (0.000-0.056) Pro-B-Type Natriuretic Peptide 721 pg/mL (0-125) H Total Protein 7.3 G/DL (6.4-8.2) Albumin 3.4 G/DL (3.4-5.0) Globulin 3.9 g/dL Albumin/Globulin Ratio 0.9 (1.0-2.7) L Urine Color Pale yellow Urine Appearance Clear Urine pH 6 (4.5-8.0) Urine Specific [place] 1.010 (1.005-1.035) Urine Protein Negative (NEGATIVE) Urine Glucose (UA) Negative (NEGATIVE) Urine Ketones Negative (NEGATIVE) Urine Occult Blood Negative (NEGATIVE) Urine Nitrite Negative (NEGATIVE) Urine Bilirubin Negative (NEGATIVE) Urine Urobilinogen Normal MG/DL (0.0-1.0) Urine Leukocyte Esterase Negative (NEGATIVE) Height (Feet): 5 Height (Inches): 2.00 Weight (Pounds): 196 Medications Current Medications Medications (Trade) Dose Ordered Sig/Sharmin Route PRN Reason Start Time Stop Time Status Last Admin Dose Admin Acetaminophen (Tylenol) 650 mg Q4H PRN ORAL T>100.5 10/31/17 16:45 11/30/17 16:44 11/01/17 04:15 Albuterol/ Ipratropium (Albuterol/ Ipratropium) 3 ml Q4H PRN HHN Shortness of Breath 10/31/17 16:45 11/05/17 16:44 11/01/17 04:28 Albuterol/ Ipratropium (Albuterol/ Ipratropium) 3 ml Q6HRT HHN 11/01/17 13:00 11/06/17 12:59 Azithromycin 500 mg/Dextrose 275 ml @ 275 mls/hr Q24H IV 10/31/17 21:30 11/07/17 21:29 10/31/17 22:30 Cefepime HCl 1 gm/ Dextrose 55 ml @ 110 mls/hr EVERY 12 HOURS IVPB 11/01/17 10:00 11/08/17 09:59 Furosemide (Lasix) 10 mg DAILY ORAL 11/01/17 09:00 12/01/17 08:59 11/01/17 09:19 Gabapentin (Neurontin) 600 mg Q8H PRN ORAL Neuropathic pain 10/31/17 16:45 11/30/17 16:44 Guaifenesin/ Dextromethorphan (Robitussin DM Syrup) 10 ml Q4H PRN ORAL For Cough 10/31/17 20:00 11/30/17 19:59 11/01/17 04:14 Heparin Sodium (Porcine) (Heparin 5000 units/ml) 5,000 units EVERY 12 HOURS SUBQ 10/31/17 21:00 11/30/17 20:59 11/01/17 09:21 Magnesium Hydroxide (Mom) 30 ml HSPRN PRN ORAL Constipation 10/31/17 16:45 11/30/17 16:44 Methylprednisolone Sodium Succinate (Solu-MEDROL) 40 mg EVERY 6 HOURS IVP 10/31/17 18:00 11/30/17 17:59 11/01/17 06:52 Montelukast Sodium (Singulair) 10 mg BEDTIME ORAL 10/31/17 21:00 11/30/17 20:59 10/31/17 21:12 Ondansetron HCl (Zofran) 4 mg Q6H PRN IVP Nausea & Vomiting 10/31/17 16:45 11/30/17 16:44 Pantoprazole (Protonix) 40 mg DAILY ORAL 11/01/17 09:00 12/01/17 08:59 11/01/17 09:20 Polyethylene Glycol (Miralax) 17 gm DAILYPRN PRN ORAL Constipation 10/31/17 16:45 11/30/17 16:44 Theophylline (Rafael-Dur) 100 mg DAILY ORAL 11/01/17 09:00 12/01/17 08:59 11/01/17 09:19 Assessment/Plan Assessment/Plan Abx: Cefepime 10/31- Azithromycin 10/31- Assessment: Asthma exacerbation Fever- likely viral process- no PNA on CXR; suspect Influenza -no leukocytosis -CXR: No acute findings -u/a neg HTN carpal tunnel Plan: -D/C Cefepime -Continue azithromycin but switch to PO -Start empiric Tamiflu and obtain Influenza test -f/u cx -Monitor CBC/BMP, temperatures Thank you for this consultation. Will continue to follow along with you. Discussed with Noa Srivastava M.D. Nov 01, 2017 10:17
--- NOTE | 2017-11-01 12:23 | Diagnostic Imaging Report ---
Indication: Dyspnea Comparison: 10/31/2017 2 views of the chest obtained. Minimal atelectasis left lung base demonstrated. Heart is borderline enlarged. IMPRESSION: No significant change
[2017-11-01] MEDS ORDERED: Oseltamivir 75mg cap ORAL SCH ×2 (12:30→21:00)
[2017-11-01] MEDS ORDERED: Flu Vaccine Quadrivalent 0.5ml IM ONE (13:00)
[2017-11-01] MEDS ORDERED: Albuterol/Ipratropium 3ml neb HHN SCH ×2 (13:00→19:00)
--- NOTE | 2017-11-01 13:01 | Cardiology Report ---
APPROVED REPORT EKG Measurement Heart [id number] OR 156P51 [id number] Sinus tachycardia Otherwise normal ECG
[2017-11-01] MEDS ORDERED: Milk of Magnesia 30ml Ud ORAL PRN (16:45)
[2017-11-01] MEDS ORDERED: Albuterol/Ipratropium 3ml neb HHN PRN (16:45)
[2017-11-01] MEDS ORDERED: Miralax 17gm pkt ORAL PRN (16:45)
[2017-11-01] MEDS ORDERED: Solu-MEDROL 40mg Inj IVP SCH (18:00)
[2017-11-01] MEDS ORDERED: Guaifenesin/DM 10ml syrup ORAL PRN (20:00)
[2017-11-01] MEDS ORDERED: Tubing IV Secondary IV ONE (20:09)
[2017-11-01] MEDS ORDERED: D5W 275ml ONE (20:09)
[2017-11-01] MEDS ORDERED: Azithromycin 250mg tab ORAL ONE ×2 (21:00)
[2017-11-01] MEDS ORDERED: Heparin 5000 units/ml inj SUBQ SCH (21:00)
[2017-11-01] MEDS ORDERED: Montelukast 10mg tablet ORAL SCH (21:00)
--- NOTE | 2017-11-01 22:14 | General Progress Note ---
Assessment/Plan Assessment/Plan ASSESSMENT AND RECOMMENDATIONS: 1. Asthma with exacerbation. Currently continue steroids and antibiotics. 2. Upper respiratory infection rule out pneumonia. --> pulm following --> no leukocytosis 3. Fevers, mild. Have improved 4. Anemia, currently mild. Continue to monitor H/H. Subjective Respiratory: Reports: cough Allergies: Coded Allergies: LEVOFLOXACIN (Verified Allergy, Mild, RASH, 08/09/09) HYDROCHLOROTHIAZIDE (Verified Allergy, Unknown, HIVES AND GI UPSET, ) LORAZEPAM (Verified Allergy, Unknown, CONFUSION ACCORDING TO DAUGHTER, 18/10) HYDROCODONE (Verified Adverse Reaction, Unknown, GI UPSET, 03/16/11) RANITIDINE (Verified Adverse Reaction, Unknown, GI UPSET, 03/16/11) All Systems: reviewed and negative except above Subjective fever this AM, resolved. no complaints of pain Objective Last 24 Hour Vital Signs Date Time Temp Pulse Resp B/P (MAP) Pulse Ox O2 Delivery O2 Flow Rate FiO2 11/01/17 20:00 98.4 89 18 140/66 95 11/01/17 19:49 93 20 100 Nasal Cannula 2.0 11/01/17 19:33 94 18 95 Nasal Cannula 2.0 11/01/17 16:00 98.4 94 18 123/77 97 11/01/17 13:11 89 20 100 Nasal Cannula 2.0 11/01/17 13:02 87 18 92 Nasal Cannula 2.0 11/01/17 12:00 98.2 83 21 126/71 94 Nasal Cannula 2.0 11/01/17 09:00 80 126/82 95 Room Air 11/01/17 08:00 79 11/01/17 08:00 97.7 77 21 103/60 98 Nasal Cannula 2.0 11/01/17 05:14 98.1 11/01/17 04:29 98 20 100 Nasal Cannula 2.0 11/01/17 04:20 101 16 97 Nasal Cannula 2.0 11/01/17 04:20 36 11/01/17 04:00 88 11/01/17 04:00 100.6 91 20 128/80 96 Room Air 21 11/01/17 00:00 99.1 98 20 128/78 96 Room Air 11/01/17 00:00 92 Intake and Output 10/31/17 11/01/17 19:00 07:00 Intake Total 1100 ml 530 ml Balance 1100 ml 530 ml Intake Oral 0 ml 200 ml IV Total 1100 ml 330 ml # Voids 4 Laboratory Tests 11/01/17 08:15: White Blood Count 4.9, Red Blood Count 4.17L, Hemoglobin 11.8L, Hematocrit 36.9L , Mean Corpuscular Volume 88, Mean Corpuscular Hemoglobin 28.3, Mean Corpuscular Hemoglobin Concent 32.0, Red Cell Distribution Width 12.9, Platelet Count 315, Mean Platelet Volume 8.2, Neutrophils (%) (Auto) 83.1H, Lymphocytes ( %) (Auto) 12.6L, Monocytes (%) (Auto) 2.9, Eosinophils (%) (Auto) 0.0, Basophils (%) (Auto) 1.5, Sodium Level 139, Potassium Level 4.0, Chloride Level 105, Carbon Dioxide Level 26, Anion Gap 8, Blood Urea Nitrogen 9, Creatinine 0.8 , Estimat Glomerular Filtration Rate > 60, Glucose Level 167H, Calcium Level 7.4L Height (Feet): 5 Height (Inches): 2.00 Weight (Pounds): 196 General Appearance: no apparent distress EENT: normal ENT inspection Neck: normal alignment Cardiovascular: normal peripheral pulses Respiratory/Chest: chest wall non-tender Abdomen: normal bowel sounds Extremities: normal range of motion Neurologic: senior resident care director II-XII grossly normal Skin: warm/dry Jerson Howell Nov 01, 2017 22:14
[2017-11-02] MEDS ORDERED: Theophylline ER 100mg ORAL SCH (09:00)
--- NOTE | 2017-11-02 10:49 | Discharge Summary ---
Discharge Summary Hospital Course Date of Admission Oct 31, 2017 at 12:50 Date of Discharge Nov 01, 2017 at 20:10 Admitting Diagnosis ASTHMA EXACERBATION HPI Madison Horan is a 52 year old female who was admitted on Oct 31, 2017 at 12 :50 for Asthma Exacerbation Hospital Course [id number] Discharge Discharge Disposition Patient left AMA Discharge Diagnoses: Gaby Michelle NP Nov 02, 2017 10:49
--- NOTE | 2017-11-03 03:45 | Discharge Summary 2 SIG ---
DATE OF ADMISSION: 10/31/2017 DATE OF DISCHARGE: 11/01/2017 CONSULTANTS: 1. Dr. Noa Painting. 2. Kiesha Wilkerson M.D. BRIEF HOSPITAL COURSE: The patient is a 52-year-old female with medical history significant for hypertension, asthma, and carpal tunnel syndrome presented to ED complaining of shortness of breath for the past several days with cough productive of yellow sputum and accompanied wheezing. There was no hemoptysis. No chest pain. No palpitations. On evaluation at ED, the patient was tachycardic and tachypneic. She was given nebulizer treatment x3. Chest x-ray done showed no acute findings. She was given IV magnesium sulfate. She remained tachypneic and hypoxic on room air and was still wheezing. She was then admitted to telemetry for asthma exacerbation and possible pneumonia. She was started on IV steroids and initially was given cefepime. She was started on Tamiflu. Cefepime was discontinued and was given Zithromax, however, full treatment was not carried out as the patient signed out against medical advice. FINAL DIAGNOSES: 1. Acute asthma exacerbation. 2. Upper respiratory infection, possible pneumonia. 3. Fever, mild. 4. Anemia. 5. Hypertension. 6. Carpal tunnel syndrome. 7. Possible upper respiratory infection. 8. Possibly sepsis. DISCHARGE DISPOSITION: The patient left AMA. Jerson Howell M.D. I have been assigned to dictate discharge summary on this account and I was not involved in the patient's management. Gaby Michelle N.P. DR: DECLAN JOB#: [id number] CC:
== END 2017-11-01 20:10 | disposition left against medical advice (07) | DRG 141 ==
LOC: EDBEDREQ 11:59 → EMR 12:27 → 2E 12:50 → EDBEDREQ 19:07 → 4E 11-01 14:23
DX: J45.901 Unspecified asthma with (acute) exacerbation (principal); A41.9 Sepsis, unspecified organism; J18.9 Pneumonia, unspecified organism; J44.1 Chronic obstructive pulmonary disease with (acute) exacerbation; E83.51 Hypocalcemia; I10 Essential (primary) hypertension; D64.9 Anemia, unspecified; J06.9 Acute upper respiratory infection, unspecified; Z88.6 Allergy status to analgesic agent; Z88.1 Allergy status to other antibiotic agents; Z88.8 Allergy status to other drugs, medicaments and biological substances; G56.01 Carpal tunnel syndrome, right upper limb
CPT/HCPCS: 36415; 71010; 71020; 80048; 80053; 81003; 83880; 84484; 85025; 87040; 93005; 94640; J7620

== ENCOUNTER 2018-03-31 10:23 | Emergency (ER) | payer OTHER ==
[~2018-03-31] VITALS: Ht 162.6 cm; Wt 77.6 kg
[2018-03-31] MEDS ORDERED: IBUPROFEN400 MG ORAL (10:58)
[2018-03-31] MEDS ORDERED: PERCOCET 5-3251 EACH ORAL (10:58)
[2018-03-31 11:06] VITALS: BP 130/79
[2018-03-31 11:07] VITALS: BP 130/79
--- NOTE | 2018-03-31 11:33 | Emergency Room Report ---
History of Present Illness General Chief Complaint: Medication Refill Source: Medical Record Present Illness HPI 52-year-old female presents ED complaining of left foot pain, here for medication refill. States that she broke her foot over mother stating weekend. Had surgery 2 days ago at [facility]. In splint. Pins in her foot. Patient states that she was taking 2.5 Percocets every 6 hours and ran out of her medication. Was initially told to take one when the pain did not improve she was told to take 2. Ultimately her orthopedic doctor told her to take 2.5. She was told not to take ibuprofen because she "takes blood thinners ". Patient states she takes baby aspirin. Pain is throbbing, 10 out of 10, nonradiating. No other aggravating relieving factors. Denies any other associated symptoms Allergies: Coded Allergies: LEVOFLOXACIN (Verified Allergy, Mild, RASH, 08/09/09) HYDROCHLOROTHIAZIDE (Verified Allergy, Unknown, HIVES AND GI UPSET, ) LORAZEPAM (Verified Allergy, Unknown, CONFUSION ACCORDING TO DAUGHTER, 18/10) HYDROCODONE (Verified Adverse Reaction, Unknown, GI UPSET, 03/16/11) RANITIDINE (Verified Adverse Reaction, Unknown, GI UPSET, 03/16/11) Patient History Past Medical History: HTN, asthma Past Surgical History: other - L foot Pertinent Family History: none Social History: Denies: smoking, alcohol use, drug use Now: No Immunizations: UTD Reviewed Nursing Documentation: PMH: Agreed; PSxH: Agreed Nursing Documentation-PMH Past Medical History: No History, Except For Hx Cardiac Problems: Yes Hx Hypertension: Yes Hx Pacemaker: No Hx Asthma: Yes Hx COPD: No Hx Diabetes: No Hx Cancer: No Hx Gastrointestinal Problems: Yes Hx Dialysis: No Hx Neurological Problems: No Hx Cerebrovascular Accident: No Hx Seizures: No Review of Systems All Other Systems: negative except mentioned in HPI Physical Exam Vital Signs Date Time Temp Pulse Resp B/P (MAP) Pulse Ox O2 Delivery O2 Flow Rate FiO2 03/31/18 10:32 97.9 104 18 130/79 95 Room Air 97.9 Sp02 EP Interpretation: reviewed, normal General Appearance: no apparent distress, alert, GCS 15, non-toxic Head: normocephalic, atraumatic Eyes: bilateral eye normal inspection, bilateral eye PERRL ENT: hearing grossly normal, normal pharynx, no angioedema, normal voice Neck: full range of motion, supple/symm/no masses Respiratory: chest non-tender, lungs clear, normal breath sounds, speaking full sentences Cardiovascular #1: regular rate, rhythm, no edema Cardiovascular #2: 2+ carotid (R), 2+ carotid (L), 2+ radial (R), 2+ radial (L) , 2+ dorsalis pedis (R), 2+ dorsalis pedis (L) Gastrointestinal: normal bowel sounds, non tender, soft, non-distended, no guarding, no rebound Rectal: deferred Genitourinary: normal inspection, no CVA tenderness Musculoskeletal: back normal, normal range of motion, tender - LLE in splint. foot is warm. able to move toes. Neurologic: alert, oriented x3, responsive, motor strength/tone normal, sensory intact, speech normal Psychiatric: judgement/insight normal, memory normal, mood/affect normal, no suicidal/homicidal ideation Reflexes: 3+ bicep (R), 3+ bicep (L), 3+ tricep (R), 3+ tricep (L), 3+ knee (R) , 3+ knee (L) Skin: normal color, no rash, warm/dry, well hydrated Lymphatic: no adenopathy Medical Decision Making Diagnostic Impression: Primary Impression: Encounter for medication refill ER Course 52-year-old female presents to ED refill of her medication. status post foot surgery, taking Percocet hospital course: After initial history and physical, I reviewed CURES. Patient was prescribed 30 tablets of Percocet 4 days ago. Patient is unable to reach her orthopedic surgeon because it is holiday weekend. I explained to the patient that we should consider prescribing ibuprofen 400 mg. Therapeutic window is 400 mg and anything higher will increase the risk of bleeding. I explained the patient I am not concerned about her taking baby aspirin along with ibuprofen for short course. Especially when it's weighed against the option of taking 2.5 Percocets every time I told the patient that if she starts to notice blood in her stool or coffee ground emesis she should stop the ibuprofen. Given that patient did have significant surgery 2 days ago I agreed to provide her with a short course of Percocet. However I did explain that the pharmacy may refuse to fill this prescription as she was given 30 tablets 4 days ago. patient displays understanding given motrin here Diagnosis-encounter for medication refill Stable and discharged to home with prescription for Motrin, Percocet. Followup with PMD. Return to ED if symptoms recur or worsen Last Vital Signs Date Time Temp Pulse Resp B/P (MAP) Pulse Ox O2 Delivery O2 Flow Rate FiO2 03/31/18 11:07 97.9 104 18 130/79 95 Room Air 208.2 Status: improved Disposition: HOME, SELF-CARE Condition: Stable Scripts Oxycodone/Acetaminophen 5-325* (PERCOCET 5-325 MG TABLET*) 1 Each Tablet 1 TAB ORAL Q4H PRN for For Pain, #15 TAB 0 Refills Prov: Timoteo Joe MD 03/31/18 Ibuprofen* (MOTRIN*) 400 Mg Tablet 400 MG ORAL Q6H, #30 TAB 0 Refills Prov: Timoteo Joe MD 03/31/18 Referrals: NON PHYSICIAN (PCP) Patient Instructions: Medicine Refill at the Emergency Department Timoteo Joe MD March 31, 2018 11:33
== END 2018-03-31 11:10 | disposition home or self-care (01) ==
LOC: EMR 10:39
DX: M79.672 Pain in left foot (principal); Z76.0 Encounter for issue of repeat prescription; J45.909 Unspecified asthma, uncomplicated; I10 Essential (primary) hypertension; Z88.1 Allergy status to other antibiotic agents; Z88.8 Allergy status to other drugs, medicaments and biological substances
CPT/HCPCS: 99284

== ENCOUNTER 2018-08-16 22:30 | Emergency (ER) | payer OTHER ==
[~2018-08-16] VITALS: Ht 157.5 cm; Wt 90.7 kg
[~2018-08-16 22:30] MED LIST changes: +IBUPROFEN400 MG ORAL; +PERCOCET 5-3251 EACH ORAL
--- NOTE | 2018-08-16 22:50 | Emergency Room Report ---
History of Present Illness General Chief Complaint: Abdominal Pain Source: Patient Present Illness HPI Patient presents with 2 days of right lower quadrant abdominal pain. She feels nauseated but hasn't been vomiting. She's been able to move her bowels but very scant amount. She's never had this problem before. She's felt feverish and chills but doesn't documented fever. She also has been wheezing slightly. She's not short of breath at the moment. She denies any chest pain. Pain rated 10/10, constant, pressure and burning, not radiating. The pain makes her feel weak. The pain is severe 9-10/10 and constant. No rashes. She doesn't believe she is . No headache, dizziness. No h/o stones, diverticulitis. H/O gastric ulcer. Not feel like this or in similar place. Was steroid dependent, but weaned off 2016. Allergies: Coded Allergies: LEVOFLOXACIN (Verified Allergy, Mild, RASH, 08/09/09) HYDROCHLOROTHIAZIDE (Verified Allergy, Unknown, HIVES AND GI UPSET, ) LORAZEPAM (Verified Allergy, Unknown, CONFUSION ACCORDING TO DAUGHTER, 18/10) HYDROCODONE (Verified Adverse Reaction, Unknown, GI UPSET, 03/16/11) RANITIDINE (Verified Adverse Reaction, Unknown, GI UPSET, 03/16/11) Patient History Past Medical History: see triage record Social History: Denies: smoking Social History Narrative with daughter Last Menstrual Period: 2015 Reviewed Nursing Documentation: PMH: Agreed; PSxH: Agreed Nursing Documentation-PMH Hx Cardiac Problems: Yes Hx Hypertension: Yes Hx Pacemaker: No Hx Asthma: Yes Hx COPD: No Hx Diabetes: No Hx Cancer: No Hx Gastrointestinal Problems: Yes Hx Dialysis: No Hx Neurological Problems: No Hx Cerebrovascular Accident: No Hx Seizures: No Review of Systems All Other Systems: negative except mentioned in HPI Physical Exam Vital Signs Date Time Temp Pulse Resp B/P (MAP) Pulse Ox O2 Delivery O2 Flow Rate FiO2 08/16/18 22:35 98.8 95 18 135/81 96 Room Air 98.8 Sp02 EP Interpretation: reviewed, normal General Appearance: well appearing, no apparent distress, GCS 15 Head: normocephalic Eyes: bilateral eye normal inspection, bilateral eye PERRL ENT: moist mucus membranes Neck: supple Respiratory: rales Cardiovascular #1: regular rate, rhythm Cardiovascular #2: 2+ radial (R) Gastrointestinal: normal inspection, normal bowel sounds, no mass, non- distended, no rebound, tenderness - RLQ with some guarding. - no referred pain Genitourinary: no CVA tenderness Musculoskeletal: back normal, gait/station normal, normal range of motion Neurologic: alert, oriented x3, motor strength/tone normal, grossly normal Psychiatric: anxious - in pain Skin: normal inspection, warm/dry, other - vitiligo Medical Decision Making Diagnostic Impression: Primary Impression: Abdominal pain Qualified Codes: R10.31 - Right lower quadrant pain Additional Impressions: Leukocytosis Qualified Codes: D72.829 - Elevated white blood cell count, unspecified Lesion of right lung ER Course Patient presents with abdominal pain. Differential includes appendicitis, diverticulitis, UTI, pyelonephritis, uterine fibroid amongst others. The pain is fairly severe at this time. Evaluation will be with EKG, CT of the abdomen and pelvis with contrast and labs. The patient will be treated with IV hydration, Zofran and also a dose of morphine. EKG without injury. Awaiting CT scan. Patient with leukocytosis. Pain improved with morphine. Await CT. CT no surgical pathology. Pain starting to return. Abdomen still soft. Due to leukocytosis and continued pain, patient needs to be observed. Discussed with Dr. Castellanos who accepts at [facility]. Laboratory Tests Test 08/16/18 23:17 08/17/18 00:40 White Blood Count 14.3 K/UL (4.8-10.8) H Red Blood Count 4.21 M/UL (4.20-5.40) Hemoglobin 12.4 G/DL (12.0-16.0) Hematocrit 36.7 % (37.0-47.0) L Mean Corpuscular Volume 87 FL (80-99) Mean Corpuscular Hemoglobin 29.3 PG (27.0-31.0) Mean Corpuscular Hemoglobin Concent 33.7 G/DL (32.0-36.0) Red Cell Distribution Width 12.1 % (11.6-14.8) Platelet Count 412 K/UL (150-450) Mean Platelet Volume 8.4 FL (6.5-10.1) Neutrophils (%) (Auto) 68.8 % (45.0-75.0) Lymphocytes (%) (Auto) 25.7 % (20.0-45.0) Monocytes (%) (Auto) 2.4 % (1.0-10.0) Eosinophils (%) (Auto) 1.7 % (0.0-3.0) Basophils (%) (Auto) 1.4 % (0.0-2.0) Prothrombin Time 9.9 SEC (9.30-11.50) Prothrombin Time INR 0.9 (0.9-1.1) PTT 28 SEC (23-33) Sodium Level 138 MMOL/L (136-145) Potassium Level 3.5 MMOL/L (3.5-5.1) Chloride Level 103 MMOL/L (98-107) Carbon Dioxide Level 26 MMOL/L (21-32) Anion Gap 9 mmol/L (5-15) Blood Urea Nitrogen 13 mg/dL (7-18) Creatinine 0.9 MG/DL (0.55-1.30) Estimate Glomerular Filtration Rate > 60 mL/min (>60) Glucose Level 135 MG/DL (74-106) H Calcium Level 8.2 MG/DL (8.5-10.1) L Total Bilirubin 0.3 MG/DL (0.2-1.0) Aspartate Amino Transferase (AST) 13 U/L (15-37) L Alanine Aminotransferase (ALT) 23 U/L (12-78) Alkaline Phosphatase 105 U/L (46-116) Troponin I 0.000 ng/mL (0.000-0.056) Total Protein 7.5 G/DL (6.4-8.2) Albumin 3.5 G/DL (3.4-5.0) Globulin 4.0 g/dL Albumin/Globulin Ratio 0.9 (1.0-2.7) L Lipase 209 U/L (73-393) Urine Color Pale yellow Urine Appearance Clear Urine pH 6.5 (4.5-8.0) Urine Specific [place] 1.010 (1.005-1.035) Urine Protein Negative (NEGATIVE) Urine Glucose (UA) Negative (NEGATIVE) Urine Ketones Negative (NEGATIVE) Urine Blood Negative (NEGATIVE) Urine Nitrite Negative (NEGATIVE) Urine Bilirubin Negative (NEGATIVE) Urine Urobilinogen Normal MG/DL (0.0-1.0) Urine Leukocyte Esterase 1+ (NEGATIVE) H Urine RBC 0-2 /HPF (0 - 2) Urine WBC 2-4 /HPF (0 - 2) Urine Squamous Epithelial Cells Many /LPF (NONE/OCC) H Urine Bacteria Moderate /HPF (NONE) H EKG Diagnostic Results Rate: normal Rhythm: NSR ST Segments: no acute changes Rhythm Strip Diag. Results EP Interpretation: yes Rhythm: NSR, no PVC's, no ectopy CT/MRI/US Diagnostic Results CT/MRI/US Diagnostic Results : Imaging Test Ordered: abd pelvis Impression No apparent pathology in abdomen. R lesion in lung Hepatic hyperdensities. Last Vital Signs Date Time Temp Pulse Resp B/P (MAP) Pulse Ox O2 Delivery O2 Flow Rate FiO2 08/17/18 04:53 97.9 61 16 142/80 99 Room Air Status: improved Disposition: XFER T-TRM HOSP Condition: Serious Oscar Oliveira M.D. Aug 16, 2018 22:50
[2018-08-16] MEDS ORDERED: Morphine Sulfate 4mg/ml Inj (IV USE ONLY) IVP ONE (23:00)
[2018-08-16] MEDS ORDERED: Isovue-300 100ml vial INJ PRN (23:00)
[2018-08-16 23:10] VITALS: BP 126/76
[2018-08-17] LABS: INR 0.9 (0.9-1.1)
[2018-08-17 00:02] LABS: ANION GAP 9 mmol/L (5-15); BLOOD UREA NITROGEN 13 mg/dL (7-18); CALCIUM 8.2 MG/DL (8.5-10.1); CARBON DIOXIDE 26 MMOL/L (21-32); CHLORIDE 103 MMOL/L (98-107); CREATININE 0.9 MG/DL (0.55-1.30); POTASSIUM 3.5 MMOL/L (3.5-5.1); SODIUM 138 MMOL/L (136-145)
[2018-08-17 00:06] LABS: ALANINE AMINOTRANSFERASE 23 U/L (12-78); ALBUMIN 3.5 G/DL (3.4-5.0); ALBUMIN/GLOBULIN RATIO 0.9 (1.0-2.7); ALKALINE PHOSPHATASE 105 U/L (46-116); ASPARTATE AMINO TRANSFERASE 13 U/L (15-37); BILIRUBIN,TOTAL 0.3 MG/DL (0.2-1.0)
[2018-08-17 00:07] LABS: BASOPHILS % (AUTO) 1.4 % (0.0-2.0); EOSINOPHILS % (AUTO) 1.7 % (0.0-3.0); HEMATOCRIT 36.7 % (37.0-47.0); HEMOGLOBIN 12.4 G/DL (12.0-16.0); LYMPHOCYTES % (AUTO) 25.7 % (20.0-45.0); MEAN CORPUSCULAR VOLUME 87 FL (80-99); MONOCYTES % (AUTO) 2.4 % (1.0-10.0); NEUTROPHILS % (AUTO) 68.8 % (45.0-75.0); PLATELET COUNT 412 K/UL (150-450); RED BLOOD COUNT 4.21 M/UL (4.20-5.40); RED CELL DISTRIBUTION WIDTH 12.1 % (11.6-14.8); WHITE BLOOD COUNT 14.3 K/UL (4.8-10.8)
[2018-08-17 01:08] LABS: APPEARANCE,URINE CLEAR; BILIRUBIN, URINE NEGATIVE (NEGATIVE); COLOR,URINE PALE YELLOW; GLUCOSE, URINE (UA) NEGATIVE (NEGATIVE); KETONES,URINE NEGATIVE (NEGATIVE); LEUKOCYTE ESTERASE ,URINE 1+ (NEGATIVE); NITRITE,URINE NEGATIVE (NEGATIVE); PH,URINE 6.5 (4.5-8.0); PROTEIN,URINE NEGATIVE (NEGATIVE); UROBILINOGEN,URINE NORMAL MG/DL (0.0-1.0)
[2018-08-17 02:41] VITALS: BP 133/75
[2018-08-17] MEDS ORDERED: Morphine Sulfate 4mg/ml Inj (IV USE ONLY) IVP ONE (03:15)
[2018-08-17 04:36] VITALS: BP 127/70
[2018-08-17 04:53] VITALS: BP 142/80
--- NOTE | 2018-08-17 09:01 | Diagnostic Imaging Report ---
Indication: Abdominal pain Technique: Continuous helical transaxial imaging of the abdomen and pelvis was obtained from the lung bases to the pubic symphysis during intravenous contrast administration. Coronal 2-D reformats were also obtained. Study obtained in a Siemens sensation [address] Automatic Exposure Control was utilized. Total Dose length Product (DLP): 1039.[address] Dose Index Volume (CTDIvol): 19.28 mGy Comparison: None Findings: Faint groundglass subtle rounded density measuring about a centimeter noted at the right lung base. Suggest follow-up. There are 2 hypodensities in the liver both probably cystic the larger of which measures 2 cm. The gallbladder, pancreas, adrenal glands and kidneys appear normal. The spleen is unremarkable. There is no free fluid, free air, or evidence of bowel obstruction. The appendix is normal. Uterus noted. Urinary bladder is unremarkable. Vacuum phenomena and narrowing of the L5-S1 intervertebral disc noted. There is anterolisthesis at this level mild in degree associated with bilateral defects of the pars interarticularis at L5. IMPRESSION: No acute findings appreciated. Liver cysts. Rounded 1 cm groundglass opacity right lung base. Recommend follow-up at 6 months. L5 spondylolysis. Grade 1 spondylolisthesis L5 on S1. Moderate disc disease. [facility] has communicated the preliminary results to the Emergency Department. Their findings are largely concordant with this report. The CT scanner at [facility] is accredited by the [employer] and the scans are performed using dose optimization techniques as appropriate to a performed exam including Automatic Exposure control.
--- NOTE | 2018-08-19 12:08 | Cardiology Report ---
APPROVED REPORT EKG Measurement Heart [id number] AL [id number] Normal sinus rhythm Normal ECG
== END 2018-08-17 04:20 | disposition short-term general hospital (02) ==
LOC: EMR 22:50
DX: R10.9 Unspecified abdominal pain (principal); D72.829 Elevated white blood cell count, unspecified; R91.8 Other nonspecific abnormal finding of lung field; K76.89 Other specified diseases of liver; M43.06 Spondylolysis, lumbar region; M43.17 Spondylolisthesis, lumbosacral region; I10 Essential (primary) hypertension; J45.909 Unspecified asthma, uncomplicated
CPT/HCPCS: 36415; 74177; 80053; 81003; 83690; 84484; 85025; 85610; 85730; 86850; 86900; 86901; 87086; 93005; 96361; 96374; 96375; 99285; J2270; J2405; Q9967

== ENCOUNTER 2018-09-03 02:06 | Emergency (ER) | payer OTHER ==
[~2018-09-03] VITALS: Ht 157.5 cm; Wt 90.7 kg
[~2018-09-03 02:06] MED LIST changes: +COLACE100 MG ORAL; +FLEET ENEMA133 ML RECTAL; +MAGNESIUM CITR296 M1 PO
[2018-09-03 02:23] VITALS: BP 159/83
[2018-09-03] MEDS ORDERED: HYDROmorphone 1mg/ml Carpuject IM ONE (02:30)
[2018-09-03] MEDS ORDERED: PERCOCET 5-3251 EACH ORAL (03:03)
[2018-09-03] MEDS ORDERED: GABAPENTIN300 MG ORAL (03:03)
--- NOTE | 2018-09-03 03:05 | Emergency Room Report ---
History of Present Illness General Chief Complaint: Abdominal Pain Source: Patient Present Illness HPI Is a 53-year-old female with multiple medical problems. She presents with chief complaint of abdominal pain. His been a recurrent problem ongoing for over a month. She's been here 3 times already. She had several CAT scan done. She was also transferred to outside hospital where she was admitted for pain. According to her daughter she was just at [facility] ER a couple days ago. Blood works unremarkable. Four CT scans of her abdomen were negative. 2 ultrasounds were also negative. She still has persistent pain. She seen her primary care doctor who referred her for colonoscopy. Her Tylenol 3 is not helping with the pain. No nausea no vomiting. Pain is sharp radiating from the back to the front in the right upper quadrant area. Worse with movement. Pain is 10 out of 10. No fever chills but no focal deficit. Allergies: Coded Allergies: LEVOFLOXACIN (Verified Allergy, Mild, RASH, 08/09/09) HYDROCHLOROTHIAZIDE (Verified Allergy, Unknown, HIVES AND GI UPSET, ) LORAZEPAM (Verified Allergy, Unknown, CONFUSION ACCORDING TO DAUGHTER, 18/10) HYDROCODONE (Verified Adverse Reaction, Unknown, GI UPSET, 03/16/11) RANITIDINE (Verified Adverse Reaction, Unknown, GI UPSET, 03/16/11) Patient History Past Medical History: see triage record, old chart reviewed, HTN, asthma Past Surgical History: other Pertinent Family History: none Social History: Denies: smoking Last Menstrual Period: na Now: No Immunizations: other Reviewed Nursing Documentation: PMH: Agreed; PSxH: Agreed Nursing Documentation-PMH Past Medical History: No History, Except For Hx Cardiac Problems: Yes Hx Hypertension: Yes Hx Pacemaker: No Hx Asthma: Yes Hx COPD: No Hx Diabetes: No Hx Cancer: No Hx Gastrointestinal Problems: Yes - acid reflux Hx Dialysis: No Hx Neurological Problems: No Hx Cerebrovascular Accident: No Hx Seizures: No Review of Systems Eye: Denies: eye pain, blurred vision ENT: Denies: ear pain, nose congestion, throat swelling Respiratory: Denies: cough, shortness of breath Cardiovascular: Denies: chest pain, palpitations Gastrointestinal: Reports: abdominal pain; Denies: diarrhea, nausea, vomiting Musculoskeletal: Denies: back pain, joint pain Skin: Denies: rash Neurological: Denies: headache, numbness Endocrine: Denies: increased thirst, increased urine Hematologic/Lymphatic: Denies: easy bruising All Other Systems: negative except mentioned in HPI Physical Exam Vital Signs Date Time Temp Pulse Resp B/P (MAP) Pulse Ox O2 Delivery O2 Flow Rate FiO2 09/03/18 02:10 98.4 92 18 159/83 95 Room Air vitals with high blood pressure Sp02 EP Interpretation: reviewed, normal General Appearance: well appearing, no apparent distress, alert, obese Head: normocephalic, atraumatic Eyes: bilateral eye PERRL, bilateral eye EOMI ENT: hearing grossly normal, normal pharynx Neck: full range of motion, supple, no meningismus Respiratory: chest non-tender, lungs clear, normal breath sounds Cardiovascular #1: regular rate, rhythm, no murmur Gastrointestinal: normal bowel sounds, no mass, no organomegaly, no bruit, non- distended, tenderness - right flank/right upper quadrant area Musculoskeletal: back normal, gait/station normal, normal range of motion Psychiatric: mood/affect normal Skin: warm/dry Medical Decision Making Diagnostic Impression: Primary Impression: Abdominal pain Qualified Codes: R10.11 - Right upper quadrant pain ER Course Patient with right upper quadrant/flank pain. I see no need for blood work or CT scan since she just had them done already. No evidence of ACS, PE, dissection. There was no evidence of any gallstone. This could be biliary dyskinesia. It could be referred pain from spine area. Better control after shot of Dilaudid. We'll discharge home with pain medication and further workup as an outpatient. Last Vital Signs Date Time Temp Pulse Resp B/P (MAP) Pulse Ox O2 Delivery O2 Flow Rate FiO2 09/03/18 02:23 92 18 Room Air 09/03/18 02:23 98.4 159/83 95 Status: improved Disposition: HOME, SELF-CARE Condition: Stable Scripts Gabapentin* (GABAPENTIN*) 300 Mg Capsule 300 MG ORAL THREE TIMES A DAY, #30 CAP 0 Refills Prov: Dennis Correia MD 09/03/18 Oxycodone/Acetaminophen 5-325* (PERCOCET 5-325 MG TABLET*) 1 Each Tablet 1 TAB ORAL Q6H PRN for For Pain, #20 TAB Prov: Dennis Correia MD 09/03/18 Referrals: [facility],REFERR[facility] (PCP) Patient Instructions: Abdominal Pain, Adult Additional Instructions: Follow-up with your doctor within a week. Continue with your stool softener. Take new pain medication. You may need MRI of your back to see if this is the cause of the pain. You may have biliary dyskinesia causing the pain. If this is the case, you will need a HIDA scan. This can be done as an outpatient. Return if symptom worsen. Dennis Correia MD Sep 03, 2018 03:05
[2018-09-03 03:24] VITALS: BP 138/78
[2018-09-03 03:25] VITALS: BP 138/78
== END 2018-09-03 03:25 | disposition home or self-care (01) ==
LOC: EMR 02:49
DX: R10.11 Right upper quadrant pain (principal); I10 Essential (primary) hypertension; J45.909 Unspecified asthma, uncomplicated; K21.9 Gastro-esophageal reflux disease without esophagitis; Z88.6 Allergy status to analgesic agent; Z88.8 Allergy status to other drugs, medicaments and biological substances
CPT/HCPCS: 96372; 99283; J1170

== ENCOUNTER 2019-02-11 14:33 | Emergency (ER) | payer OTHER ==
[~2019-02-11] VITALS: Ht 157.5 cm; Wt 87.1 kg
[~2019-02-11 14:33] MED LIST changes: +GABAPENTIN300 MG ORAL
[2019-02-11 14:40] VITALS: BP 134/52
--- NOTE | 2019-02-11 15:08 | Emergency Room Report ---
History of Present Illness General Chief Complaint: Abdominal Pain Source: Patient, Medical Record Present Illness HPI Patient is a 53-year-old female presented after increased abdominal pain. Patient reports having prior history of lactose intolerance and stated that she ate ice cream last night and reports having increased abdominal pain and bloating sensation. She reports having increased nausea as well as reflux. She had prior history of asthma. Patient had previously been on steroids. She denies prior history of diabetes. She reports of increased abdominal pain.Patient states she had recently increased amount of exercise she was doing and subsequently began having increased generalized body aches. Allergies: Coded Allergies: LEVOFLOXACIN (Verified Allergy, Mild, RASH, 08/09/09) HYDROCHLOROTHIAZIDE (Verified Allergy, Unknown, HIVES AND GI UPSET, ) LORAZEPAM (Verified Allergy, Unknown, CONFUSION ACCORDING TO DAUGHTER, 18/10) HYDROCODONE (Verified Adverse Reaction, Unknown, GI UPSET, 03/16/11) RANITIDINE (Verified Adverse Reaction, Unknown, GI UPSET, 03/16/11) Patient History Past Medical History: see triage record Last Menstrual Period: menopause Reviewed Nursing Documentation: PMH: Agreed; PSxH: Agreed Nursing Documentation-PMH Past Medical History: No History, Except For Hx Cardiac Problems: Yes Hx Hypertension: Yes Hx Pacemaker: No Hx Asthma: Yes Hx COPD: No Hx Diabetes: No Hx Cancer: No Hx Gastrointestinal Problems: Yes - acid reflux Hx Dialysis: No Hx Neurological Problems: No Hx Cerebrovascular Accident: No Hx Seizures: No Review of Systems All Other Systems: negative except mentioned in HPI Physical Exam Vital Signs Date Time Temp Pulse Resp B/P (MAP) Pulse Ox O2 Delivery O2 Flow Rate FiO2 02/11/19 14:40 98.2 83 18 134/52 100 Room Air Sp02 EP Interpretation: reviewed, normal General Appearance: normal inspection, well appearing, no apparent distress, alert, GCS 15 Head: atraumatic ENT: normal ENT inspection, hearing grossly normal, normal voice Neck: normal inspection, full range of motion, supple, no bony tend Respiratory: normal inspection, lungs clear, normal breath sounds, no respiratory distress, no retraction, no wheezing Cardiovascular #1: regular rate, rhythm, no edema Gastrointestinal: normal bowel sounds, soft, no guarding, no hernia, distended Genitourinary: no CVA tenderness Musculoskeletal: normal inspection, back normal, normal range of motion Neurologic: normal inspection, alert, oriented x3, responsive, speech normal Psychiatric: normal inspection, judgement/insight normal, mood/affect normal Skin: normal inspection, no rash, other - multiple patchy area of hypopigmentation Medical Decision Making Diagnostic Impression: Primary Impression: Abdominal pain Additional Impression: Lactose intolerance in adult ER Course Patient presented for abdominal pain. Differential diagnoses included ischemic bowel, appendicitis, perforated viscus, abdominal aortic aneurysm, inferior myocardial infarction, viral gastroenteritis among others. because of complexity of patient's case laboratory testing and imaging studies were ordered. Patient was noted to have nonspecific abdominal pain. She was given IV fluids as well as IV antiemetics. Patient was noted to have some prior history of chronic abdominal pain and was noted to have multiple CT imaging in the past which were unremarkable.The patient is advised to follow up with primary care doctor in 1-2 days. Patient is advised to return if any worsening condition or if any changes in status that are concerning. This report is dictated with [employer] bacon [employer]ner software which may occasionally lead to discrepancies related to use of this software. Labs Test 02/11/19 15:21 02/11/19 16:05 White Blood Count 7.2 K/UL (4.8-10.8) Red Blood Count 4.41 M/UL (4.20-5.40) Hemoglobin 12.4 G/DL (12.0-16.0) Hematocrit 37.9 % (37.0-47.0) Mean Corpuscular Volume 86 FL (80-99) Mean Corpuscular Hemoglobin 28.1 PG (27.0-31.0) Mean Corpuscular Hemoglobin Concent 32.6 G/DL (32.0-36.0) Red Cell Distribution Width 12.8 % (11.6-14.8) Platelet Count 348 K/UL (150-450) Mean Platelet Volume 8.4 FL (6.5-10.1) Neutrophils (%) (Auto) 63.4 % (45.0-75.0) Lymphocytes (%) (Auto) 30.7 % (20.0-45.0) Monocytes (%) (Auto) 3.4 % (1.0-10.0) Eosinophils (%) (Auto) 1.6 % (0.0-3.0) Basophils (%) (Auto) 0.9 % (0.0-2.0) Sodium Level 142 MMOL/L (136-145) Potassium Level 3.5 MMOL/L (3.5-5.1) Chloride Level 103 MMOL/L (98-107) Carbon Dioxide Level 30 MMOL/L (21-32) Anion Gap 9 mmol/L (5-15) Blood Urea Nitrogen 12 mg/dL (7-18) Creatinine 0.8 MG/DL (0.55-1.30) Estimat Glomerular Filtration Rate > 60 mL/min (>60) Glucose Level 108 MG/DL (74-106) Calcium Level 9.1 MG/DL (8.5-10.1) Total Bilirubin 0.5 MG/DL (0.2-1.0) Aspartate Amino Transf (AST/SGOT) 26 U/L (15-37) Alanine Aminotransferase (ALT/SGPT) 33 U/L (12-78) Alkaline Phosphatase 82 U/L (46-116) Troponin I 0.000 ng/mL (0.000-0.056) Total Protein 7.3 G/DL (6.4-8.2) Albumin 3.5 G/DL (3.4-5.0) Globulin 3.8 g/dL Albumin/Globulin Ratio 0.9 (1.0-2.7) Lipase 150 U/L (73-393) Urine Color Pale yellow Urine Appearance Slightly cloudy Urine pH 8 (4.5-8.0) Urine Specific [place] 1.010 (1.005-1.035) Urine Protein 3+ (NEGATIVE) Urine Glucose (UA) Negative (NEGATIVE) Urine Ketones Negative (NEGATIVE) Urine Blood Negative (NEGATIVE) Urine Nitrite Negative (NEGATIVE) Urine Bilirubin Negative (NEGATIVE) Urine Urobilinogen Normal MG/DL (0.0-1.0) Urine Leukocyte Esterase 3+ (NEGATIVE) Urine RBC 0-2 /HPF (0 - 2) Urine WBC 15-20 /HPF (0 - 2) Urine Squamous Epithelial Cells Many /LPF (NONE/OCC) Urine Amorphous Sediment Many /LPF (NONE) Urine Bacteria Many /HPF (NONE) Last Vital Signs Date Time Temp Pulse Resp B/P (MAP) Pulse Ox O2 Delivery O2 Flow Rate FiO2 02/11/19 14:40 98.2 83 18 134/52 100 Room Air Status: improved Disposition: HOME, SELF-CARE Condition: Stable Scripts Simethicone* (SIMETHICONE*) 80 Mg Tab.chew 80 MG ORAL Q8H PRN for GAS PAIN, #20 TAB 0 Refills Prov: Seb Ashley MD 02/11/19 Ondansetron (Zofran) 4 Mg Tablet 4 MG ORAL Q6H PRN for Nausea & Vomiting, #30 TAB 0 Refills Prov: Seb Ashley MD 02/11/19 Seb Ashley MD Feb 11, 2019 15:08
[2019-02-11] MEDS ORDERED: Dicyclomine HCl 10mg/5ml oral soln ORAL ONE (15:15)
[2019-02-11] MEDS ORDERED: Lidocaine 2% Visc 15ml soln ORAL ONE (15:15)
[2019-02-11] MEDS ORDERED: Mylanta II UD 30ml ORAL ONE (15:15)
[2019-02-11 15:39] LABS: BASOPHILS % (AUTO) 0.9 % (0.0-2.0); EOSINOPHILS % (AUTO) 1.6 % (0.0-3.0); HEMATOCRIT 37.9 % (37.0-47.0); HEMOGLOBIN 12.4 G/DL (12.0-16.0); LYMPHOCYTES % (AUTO) 30.7 % (20.0-45.0); MEAN CORPUSCULAR VOLUME 86 FL (80-99); MONOCYTES % (AUTO) 3.4 % (1.0-10.0); NEUTROPHILS % (AUTO) 63.4 % (45.0-75.0); PLATELET COUNT 348 K/UL (150-450); RED BLOOD COUNT 4.41 M/UL (4.20-5.40); RED CELL DISTRIBUTION WIDTH 12.8 % (11.6-14.8); WHITE BLOOD COUNT 7.2 K/UL (4.8-10.8)
[2019-02-11 15:48] LABS: ANION GAP 9 mmol/L (5-15); BLOOD UREA NITROGEN 12 mg/dL (7-18); CALCIUM 9.1 MG/DL (8.5-10.1); CARBON DIOXIDE 30 MMOL/L (21-32); CHLORIDE 103 MMOL/L (98-107); CREATININE 0.8 MG/DL (0.55-1.30); POTASSIUM 3.5 MMOL/L (3.5-5.1); SODIUM 142 MMOL/L (136-145)
[2019-02-11 15:52] LABS: ALANINE AMINOTRANSFERASE 33 U/L (12-78); ALBUMIN 3.5 G/DL (3.4-5.0); ALBUMIN/GLOBULIN RATIO 0.9 (1.0-2.7); ALKALINE PHOSPHATASE 82 U/L (46-116); ASPARTATE AMINO TRANSFERASE 26 U/L (15-37); BILIRUBIN,TOTAL 0.5 MG/DL (0.2-1.0)
[2019-02-11 16:00] VITALS: BP 130/75
[2019-02-11 16:26] LABS: APPEARANCE,URINE SLIGHTLY CLOUDY; BILIRUBIN, URINE NEGATIVE (NEGATIVE); COLOR,URINE PALE YELLOW; GLUCOSE, URINE (UA) NEGATIVE (NEGATIVE); KETONES,URINE NEGATIVE (NEGATIVE); LEUKOCYTE ESTERASE ,URINE 3+ (NEGATIVE); NITRITE,URINE NEGATIVE (NEGATIVE); PH,URINE 8 (4.5-8.0); PROTEIN,URINE 3+ (NEGATIVE); UROBILINOGEN,URINE NORMAL MG/DL (0.0-1.0)
[2019-02-11] MEDS ORDERED: SIMETHICONE80 MG ORAL (16:28)
[2019-02-11] MEDS ORDERED: ZOFRAN4 MG ORAL (16:28)
[2019-02-11 16:48] VITALS: BP 123/73
--- NOTE | 2019-02-12 12:27 | Cardiology Report ---
APPROVED REPORT EKG Measurement Heart [id number] CT [id number] Normal sinus rhythm Normal ECG
== END 2019-02-11 16:48 | disposition home or self-care (01) ==
LOC: EMR 15:10
DX: R10.9 Unspecified abdominal pain (principal); E73.9 Lactose intolerance, unspecified; R11.0 Nausea; K21.9 Gastro-esophageal reflux disease without esophagitis; Z88.8 Allergy status to other drugs, medicaments and biological substances; I10 Essential (primary) hypertension
CPT/HCPCS: 36415; 80053; 81003; 83690; 84484; 85025; 87086; 93005; 96374; 99284; J2405; J7040

== ENCOUNTER 2019-08-04 09:52 | Emergency (ER) | payer OTHER ==
[~2019-08-04] VITALS: Ht 157.5 cm; Wt 86.2 kg
[~2019-08-04 09:52] MED LIST changes: +OMEPRAZOLE40 M1 ORAL; +PAROXETINE HC12.5 MG ORAL; +REGLAN10 M1 ORAL; +SIMETHICONE80 MG ORAL; +SINGULAIR10 MG ORAL; +ZOFRAN4 MG ORAL
--- NOTE | 2019-08-04 10:11 | NUR ---
ED Nurse Note: Pt came in due to rashes on left upper arm and abdomen that started yesterday and states that it might be a possible insect bite or from the tomatoes that she ate. Took benadryl 2 capsules this morning. Pt is AAO x4 and ambulatory with non labored breathing. Speaks in full sentences. Noted redness on LUE.
[2019-08-04 10:21] VITALS: BP 109/63
[2019-08-04] MEDS ORDERED: CEPHALEXIN500 MG ORAL (10:22)
--- NOTE | 2019-08-04 10:26 | Emergency Room Report ---
History of Present Illness General Chief Complaint: Allergic Reaction Source: Patient Present Illness HPI Disclaimer: Please note that this report is being documented using [employer] technology. This can lead to erroneous entry secondary to incorrect interpretation by the dictating instrument. HPI: 54-year-old female with a history of hypertension and asthma presents for evaluation of left arm pain and swelling. Symptoms began yesterday. She noticed a redness over the forearm and over the left bicep. She believes she may have been bitten by an insect though cannot recall specific incident. She noted 2 areas of serous drainage though very minimal. She notes significant itching is been using Benadryl at home with some relief. Denies any fevers, chills, sore throat, cough, chest pain, abdominal pain, vomiting or diarrhea. No recent antibiotic use. Denies any purulent drainage, bleeding or skin breakdown. PMH: Asthma PSH: Left ankle repair Allergies: See chart, multiple listed Social Hx: Denies drug or alcohol abuse Allergies: Coded Allergies: LEVOFLOXACIN (Verified Allergy, Mild, RASH, 08/09/09) HYDROCHLOROTHIAZIDE (Verified Allergy, Unknown, HIVES AND GI UPSET, ) LORAZEPAM (Verified Allergy, Unknown, CONFUSION ACCORDING TO DAUGHTER, 18/10) HYDROCODONE (Verified Adverse Reaction, Unknown, GI UPSET, 03/16/11) RANITIDINE (Verified Adverse Reaction, Unknown, GI UPSET, 03/16/11) Nursing Documentation-PMH Past Medical History: No History, Except For Hx Hypertension: Yes Hx Pacemaker: No Hx Asthma: Yes Hx COPD: No Hx Diabetes: No Hx Cancer: No Hx Gastrointestinal Problems: Yes - acid reflux Hx Dialysis: No Hx Neurological Problems: No Hx Cerebrovascular Accident: No Hx Seizures: No Review of Systems All Other Systems: negative except mentioned in HPI Physical Exam Vital Signs Date Time Temp Pulse Resp B/P (MAP) Pulse Ox O2 Delivery O2 Flow Rate FiO2 08/04/19 10:14 98.2 79 18 119/68 (85) 99 Room Air General: Awake and alert, no acute distress HEENT: NC/AT. EOMI. Resp: Normal work of breathing. Skin: There is a 10 x 10 cm area over the left bicep that is erythematous and warm to the touch. No fluctuance, no induration. No bleeding, weeping or purulence. There is also an area over the left forearm approximately 7 x 7 cm with 2 small areas of serous drainage. No bleeding, no overlying skin breakdown. MSK: Normal tone and bulk. Moving all extremities. No obvious deformity. Full range of motion left upper extremity, wrist and hand Neuro: Awake and alert. Mentating appropriately. Sensation intact of the dermatomes of the upper extremities bilaterally. Medical Decision Making Diagnostic Impression: Primary Impression: Left arm cellulitis ER Course Is a 54-year-old female presenting for evaluation of redness and pain over the left upper extremity consistent with a cellulitis. May have been an insect bite or other small abrasion that triggered this infection however it appears she has a superficial cellulitis. No evidence of a deep space infection on clinical exam. She has no systemic signs of illness. Do not believe she requires emergent imaging or labs at this time. Patient will be discharged home on Keflex and instructed to follow-up with her PMD within 5 days or to return to the emergency department if her symptoms worsen. She understands and agrees with this treatment plan will be discharged home. Last Vital Signs Date Time Temp Pulse Resp B/P (MAP) Pulse Ox O2 Delivery O2 Flow Rate FiO2 08/04/19 10:21 98.5 85 15 109/63 99 Room Air Disposition: HOME, SELF-CARE Condition: Stable Scripts Cephalexin* (KEFLEX*) 500 Mg Capsule 500 MG ORAL EVERY 12 HOURS for 7 Days, #14 CAP 0 Refills Prov: Victor Manuel Smith MD 08/04/19 Referrals: [facility] Sun[facility] Patient Instructions: Cellulitis Additional Instructions: He will be treated for skin infection with an antibiotic, cephalexin, for 7 days. You can continue using your Benadryl for control of itching as needed. Please see your doctor within the next 5 days for reevaluation to make sure you are improving. If your symptoms become worse with spreading redness, worsening pain, difficulty moving the arm or hand, fevers, vomiting, diarrhea or any other sudden changes in your health return to the emergency department for reevaluation Victor Manuel Smith MD Aug 04, 2019 10:25
[2019-08-04 10:46] VITALS: BP 112/75
--- NOTE | 2019-08-04 10:46 | NUR ---
ER DISCHARGE NOTE: Patient is cleared to be discharged per ERMD, pt is aox4, on room air, with stable vital signs. pt was given dc and prescription instructions, pt was able to verbalize understanding, pt id band removed. pt is able to ambulate with steady gait. pt took all belongings and left with her family member.
== END 2019-08-04 10:46 | disposition home or self-care (01) ==
LOC: EMR 10:10
DX: L03.114 Cellulitis of left upper limb (principal); J45.909 Unspecified asthma, uncomplicated; Z88.1 Allergy status to other antibiotic agents; Z88.8 Allergy status to other drugs, medicaments and biological substances; Z88.6 Allergy status to analgesic agent; I10 Essential (primary) hypertension; K21.9 Gastro-esophageal reflux disease without esophagitis
CPT/HCPCS: 99282